=== PATIENT | female | born 1980 | race Caucasian/White ===

== ENCOUNTER 2024-01-31 09:36 | Inpatient (IN) | payer OTHER ==
--- NOTE | 2024-01-31 10:34 | ED ---
Chest Pain HPI - General Chief Complaint: Chest Pain Stated Complaint: chest pain Time Seen by Provider: 01/31/24 09:45 Source: patient, EMS Mode of arrival: EMS Limitations: no limitations - History of Present Illness Initial Comments: 43-year-old female with past medical history of coronary disease, renal failure on dialysis Friday, thyroid disorder who presents emergency department reporting chest pain. Reports that she was like she is having a pin poking her in the left side of her chest wall. She also is short of breath. patient was just discharged from the hospital on the . She was discharged home with a LifeVest because her after her heart cath demonstrated an EF of 20%. States that her shortness of breath is getting worse while her pain is not getting any better. She has been taking all of her prescribed medications as directed without any missed doses. She did go to dialysis yesterday and had no issue. Patient does not make any urine. Patient arrives without her LifeVest on. States she took it off just prior to EMS coming to pick her up. No other alleviating, precipitating or modifying factors - Related Data Home Medications Medication Instructions Recorded Confirmed Aspirin 81 mg PO DAILY 01/27/24 01/31/24 Atorvastatin [Lipitor] 40 mg PO DAILY 01/27/24 01/31/24 Empagliflozin [Jardiance] 10 mg PO DAILY 01/27/24 01/31/24 Folic Acid 1 mg PO DAILY 01/27/24 01/31/24 Levothyroxine Sodium [Synthroid] 125 mcg PO DAILY 01/27/24 01/31/24 Losartan [Cozaar] 25 mg PO DAILY 01/27/24 01/31/24 Doxylamine Succinate [Unisom] 25 mg PO HS PRN 01/31/24 01/31/24 Loratadine [Claritin] 10 mg PO DAILY 01/31/24 01/31/24 Previous Rx's Medication Instructions Recorded Isosorbide Dinitrate [Isordil] 20 mg PO TID #90 tab 01/27/24 Metoprolol Tartrate [Lopressor] 25 mg PO BID #60 tab 01/27/24 Nystatin 100,000 Unit/gm Powd 1 applic TOPICAL QID each 01/27/24 [Mycostatin Powder] Pantoprazole [Protonix] 40 mg PO AC-BRKFST #30 tab 01/27/24 Sodium Bicarbonate Tab 650 mg PO BID #60 tab 01/27/24 Ticagrelor [Brilinta] 90 mg PO BID #60 tab 01/27/24 Torsemide [Demadex] 40 mg PO DAILY #60 tab 01/27/24 hydrALAZINE HCL [Apresoline] 25 mg PO TID #90 tab 01/27/24 Allergies Allergy/AdvReac Type Severity Reaction Status Date / Time No Known Allergies Allergy Verified 01/24/24 18:33 Review of Systems ROS Statement: Those systems with pertinent positive or pertinent negative responses have been documented in the HPI. ROS Other: All systems not noted in ROS Statement are negative. Past Medical History Past Medical History: Myocardial Infarction ([place]), Renal Disease History of Any Multi-Drug Resistant Organisms: None Reported Past Surgical History: Heart Catheterization, Heart Catheterization With Stent Additional Past Surgical History / Comment(s): right kidney removed 2022 Past Psychological History: Anxiety, Depression Smoking Status: Former smoker Past Alcohol Use History: None Reported Past Drug Use History: None Reported General Exam Limitations: no limitations General appearance: alert, in no apparent distress Head exam: Present: atraumatic, normocephalic, normal inspection Eye exam: Present: normal appearance, PERRL, EOMI. Absent: scleral icterus, conjunctival injection, periorbital swelling Neck exam: Present: normal inspection. Absent: tenderness, meningismus, lymphadenopathy Respiratory exam: Present: normal lung sounds bilaterally. Absent: respiratory distress, wheezes, rales, rhonchi, stridor Cardiovascular Exam: Present: regular rate, normal rhythm, normal heart sounds. Absent: systolic murmur, diastolic murmur, rubs, gallop, clicks Extremities exam: Present: normal inspection, full ROM, normal capillary refill. 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 sent in by a medical professional or institution (, PA, INSPECTING ENGINEER, urgent care, hospital, or jail...) When possible be specific @ -No Did you speak to anyone other than the patient for history (EMS, parent, family, police, friend...)? What history was obtained from this source @ -No Did you review nursing and triage notes (agree or disagree)? Why? @ -I reviewed and agree with nursing and triage notes Were old charts reviewed (outside hosp., previous admission, EMS record, old EKG, old radiological studies, urgent care reports/EKG's, jail records)? Report findings @ -I reviewed discharge summary from the Differential Diagnosis (chest pain, altered mental status, abdominal pain women, abdominal pain men, vaginal bleeding, weakness, fever, dyspnea, syncope, headache, dizziness, GI bleed, back pain, seizure, CVA, palpatations, mental health, musculoskeletal)? @ -Differential Dyspnea: Coronary syndrome, arrhythmia, tamponade, asthma, COPD, pulmonary embolism, pneumonia, pneumothorax, pulmonary effusion, anaphylaxis, diabetic ketoacidosis, flailed chest, pulmonary contusion, diaphragmatic rupture, anemia, neuromuscular, this is not meant to be an all-inclusive list. EKG interpreted by me (3pts min.). @ -Yes and demonstrates sinus rhythm with a rate of 75. Parable 194. QRS 70. QTc of 384. No acute ST segment elevations. Inverted T wave aVL X-rays interpreted by me (1pt min.). @ -Yes and demonstrates no acute process CT interpreted by me (1pt min.). @ -None done U/S interpreted by me (1pt. min.). @ -None done What testing was considered but not performed or refused? (CT, X-rays, U/S, labs)? Why? @ -None What meds were considered but not given or refused? Why? @ -None Did you discuss the management of the patient with other professionals (professionals i.e. , PA, INSPECTING ENGINEER, lab, RT, psych nurse, social media director, corporate compliance manager, teacher, life science technical officer, patient case manager)? Give summary @ -Spoke with Dr. Al who does present to the emergency department to evaluate the patient. Also spoke with Dr. Varner who would like to dialyze the patient after her cath Was smoking cessation discussed for >3mins.? @ -No Was critical care preformed (if so, how long)? @ -Yes, 40 minutes for diagnosis of NSTEMI. Discussion with cardiology and nephrology Were there social determinants of health that impacted care today? How? (Homelessness, low income, unemployed, alcoholism, drug addiction, transportation, low edu. Level, literacy, decrease access to med. care, alf, rehab)? @ -No Was there de-escalation of care discussed even if they declined (Discuss DNR or withdrawal of care, Hospice)? DNR status @ -No What co-morbidities impacted this encounter? (DM, HTN, Smoking, COPD, CAD, Cancer, CVA, ARF, Chemo, Hep., AIDS, mental health diagnosis, sleep apnea, morbid obesity)? @ -End-stage renal disease on hemodialysis, coronary disease Was patient admitted / discharged? Hospital course, mention meds given and route, prescriptions, significant lab abnormalities, going to OR and other pertinent info. @ -Upon arrival patient seen and evaluated in room 28. Thorough history and physical exam was performed. Patient does not have any respiratory distress. IV is established. Laboratory studies are conducted. Chest x-ray was performed. Patient's troponin markedly elevated. Spoke with Dr. Al. Patient will be heparinized and he will catheterize the patient. I spoke with Dr. Varner she will dialyze the patient after her cath. Patient was agreeable to admission. Spoke with Dr. Jimenez for admission. Undiagnosed new problem with uncertain prognosis? @ -No Drug Therapy requiring intensive monitoring for toxicity (Heparin, Nitro, Insulin, Cardizem)? @ -No Were any procedures done? @ -No Diagnosis/symptom? @- Acute respiratory insufficiency, NSTEMI, volume overload, end-stage renal disease on hemodialysis, history of coronary disease with recent stent placement Acute, or Chronic, or Acute on Chronic? @ -Acute on chronic Uncomplicated (without systemic symptoms) or Complicated (systemic symptoms)? @ -Complicated Side effects of treatment? @ -No Exacerbation, Progression, or Severe Exacerbation? @ -No Poses a threat to life or bodily function? How? (Chest pain, [place], [place], pneumonia, PE, COPD, DKA, ARF, appy, cholecystitis, CVA, Diverticulitis, Homicidal, Suicidal, threat to staff... and all critical care pts) @ -Yes as patient does have advanced cardiac disease with an EF less than 20 Disposition Clinical Impression: Chest pain, Acute non-ST elevation myocardial infarction (NSTEMI), ESRD (end s tage renal disease) on dialysis, Hyperkalemia, Hypoglycemia Disposition: ADMITTED IP TO THIS [facility] Condition: Serious Is patient prescribed a controlled substance at d/c from ED?: No Time of Disposition: 13:28 Decision to Admit Reason: Admit from EC Decision Date: 01/31/24 Decision Time: 13:28
--- NOTE | 2024-01-31 10:45 | XR ---
EXAMINATION TYPE: XR chest 2V DATE OF EXAM: 01/31/2024 COMPARISON: 01/25/2024 INDICATION: Chest pain TECHNIQUE: Frontal and lateral views of the chest are obtained. FINDINGS: The heart size is large. The pulmonary vasculature is normal. The lungs are clear. Catheter is present on the right with the tips in the distal superior vena cava region. IMPRESSION: 1. Cardiomegaly. 2. No acute pulmonary process.
[2024-01-31 11:30] LABS: AST 371 U/L (14-36); African American GFR (CKD) 16 (>60 ml/min/1.73 sqM); Albumin 3.5 g/dL (3.5-5.0); Alkaline Phosphatase 777 U/L (38-126); Anion Gap 19 mmol/L; Blood Urea Nitrogen 55 mg/dL (7-17); Calcium 8.6 mg/dL (8.4-10.2); Carbon Dioxide 20 mmol/L (22-30); Chloride 90 mmol/L (98-107); Glucose 69 mg/dL (74-99); Lipase 556 U/L (23-300); Magnesium 2.3 mg/dL (1.6-2.3); Non-African American GFR(CKD) 14 (>60 ml/min/1.73 sqM); Sodium 129 mmol/L (137-145); Total Bilirubin 3.9 mg/dL (0.2-1.3)
[2024-01-31 11:38] LABS: ALT 433 U/L (4-34); Potassium 6.3 mmol/L (3.5-5.1)
[2024-01-31 11:52] LABS: Anisocytosis Slight; Basophils % (A) 0 %; Eosinophils % (A) 0 %; HCT 27.3 % (34.0-46.0); HGB 8.4 gm/dL (11.4-16.0); Hypochromasia Marked; Lymphocytes # (A) 1.3 k/uL (1.0-4.8); Lymphocytes % (A) 9 %; MCHC 30.8 g/dL (31.0-37.0); MCV 87.6 fL (80.0-100.0); Mean Platelet Volume 10.9; Monocytes % (A) 7 %; Neutrophils # (A) 12.8 k/uL (1.3-7.7); Platelet Count 182 k/uL (150-450); Poikilocytosis Slight; RBC 3.11 m/uL (3.80-5.40); RDW 19.4 % (11.5-15.5)
[2024-01-31 11:57] LABS: NT-Pro-B-Type Natriuretic Pept 124000 pg/mL
[2024-01-31] MEDS: ALBUTEROL NEBULIZED 2.5 MG/3 ML INHALATION STA (12:10)
[2024-01-31] MEDS: DEXTROSE 50% SYRINGE 50 ML IVP STA ×2 (12:14→12:15)
[2024-01-31] MEDS: SODIUM ZIRCONIUM CYCLOSILICATE 10 GM PACKET PO ONE (12:19)
[2024-01-31] MEDS: INSULIN REGULAR 100 UNIT/ML VIAL (IV) IV ONE (12:19)
[2024-01-31] MEDS: diphenhydrAMINE 50 MG/ML 1 ML VIAL IVP STA (12:21)
[2024-01-31] MEDS: METOCLOPRAMIDE 5 MG/ML 2 ML VIAL IVP STA (12:25)
[2024-01-31 12:31] LABS: Lymphocytes # (M) 1.81 k/uL (1.0-4.8); Monocytes # (M) 0.45 k/uL (0-1.0); Neutrophils # (M) 12.99 k/uL (1.3-7.7); Neutrophils % (M) 86 %; Nucleated Red Blood Cells 2 /100 WBC (0-0); Total Cells Counted 200; WBC 15.1 k/uL (3.8-10.6)
[2024-01-31 12:47] LABS: INR 1.4 (<1.2); Partial Thromboplastin Time 21.9 sec (22.0-30.0); Prothrombin Time 14.8 sec (10.0-12.5)
[2024-01-31] MEDS ORDERED: HEPARIN SODIUM 1,000 UN/ML (10ML VL) IV PRN ×3 (13:01→18:13)
[2024-01-31] MEDS ORDERED: NITROGLYCERIN SL TABS 0.4 MG TAB SUBLINGUAL PRN (13:10)
[2024-01-31] MEDS ORDERED: NALOXONE 0.4 MG/ML 1 ML VIAL IV PRN (13:29)
[2024-01-31] MEDS: ASPIRIN 325 MG TAB PO STA (13:39)
[2024-01-31] MEDS: ATORVASTATIN 80 MG TAB PO STA (13:39)
[2024-01-31] MEDS: HEPARIN SOD,PORK IN 0.45% NACL 25,000 UNIT in 0.45% NACL 1 250ML.BAG IV SCH ×3 (13:48→18:32)
[2024-01-31] MEDS: HEPARIN SODIUM 1,000 UN/ML (10ML VL) IV ONE ×2 (13:49→18:32)
--- NOTE | 2024-01-31 14:24 | P.CRDCN ---
History of Present Illness Consult date: 01/31/24 Consult reason: chest pain, shortness of breath History of present illness: History of present illness: Patient is a pleasant 43-year-old female with significant past medical history of CAD status post recent PCI last week, ALDEN secondary to acute tubular necrosis started on hemodialysis 01/19/2024, anemia of chronic disease, chronic systolic h eart failure with reduced EF 20-25%, ischemic cardiomyopathy, history of right nephrectomy 2022, diabetes type 2, hyperlipidemia who presented to the emergency department with complaints of shortness of breath, chest pain, weakness, nausea/vomiting, and lightheadedness. She was discharged home on 01/27/2024 after acute anterior STEMI status post LAD stenting x 2. She was discharged home with LifeVest. She had been doing okay. She has not missed any dialysis treatments and had dialysis yesterday. Then this morning she was feeling more weak, nauseous, vomited, lightheaded and short of breath. She also reports having some chest fluttering sensation and stabbing chest pains. She does feel intermittent chills. She believes this is similar to when she had her prior MD a week ago. She does admit to compliance with her medications. She does have some small amount of bleeding when she wipes after a bowel movement. She states she is not making any urine. Chest x-ray shows cardiomegaly, no acute pulmonary process. Unable to access full record of prior admission as system was down du ring that time. Labs reviewed: WBC 15.1, hemoglobin 8.4, potassium 6.3, sodium 129, creatinine 3.68, troponin 16.3, BNP 124, 000. REVIEW OF SYSTEMS: No cough or expectoration. No diaphoresis. Patient denies headache, dizziness, blurred vision, double vision. Patient denies any stomach discomfort. No hematemesis. Denies dysuria or hematuria. No muscle weakness or numbness. Chest pain, shortness of breath, dizziness, weakness, nausea/vomiting, intermittent chills. PHYSICAL EXAMINATION: This is a 43-year-old female in no apparent distress at the time of my examination. HEENT: Head is atraumatic, normocephalic. Pupils are equal, round. Sclerae anicteric. Conjunctivae are clear. Mucous membranes of the mouth are moist. Neck is supple. There is no jugular venous distention. No carotid bruit is heard. CHEST EXAMINATION: Lungs are clear to auscultation. No chest wall tenderness is noted on palpation or with deep breathing. HEART EXAMINATION: Heart regular rate and rhythm. S1, S2 heard. No murmurs, gallops or rub. ABDOMEN: Soft, nontender. Bowel sounds are heard. EXTREMITIES: 2+ peripheral pulses with no evidence of peripheral edema and no calf tenderness noted. NEUROLOGIC EXAMINATION: Patient is awake, alert and oriented x3. IMPRESSION AND PLAN: CAD status post PCI LAD x 2 Recent STEMI 1 week ago ALDEN secondary to acute tubular necrosis on hemodialysis Acute on chronic systolic heart failure, EF 20-25% Ischemic cardiomyopathy Chest pain Shortness of breath Dizziness Nausea/vomiting NSTEMI, elevated troponin possibly related to prior STEMI versus kidney failure versus new blockage PLAN: We discussed option of stress testing versus left heart catheterization. We will plan to proceed with left heart catheterization today. Check echocardiogram to evaluate heart function and structure. Trend troponin. Continue heparin drip. Will try nitro. We will follow. I am dictating on behalf of Dr. Nilton Al's history/physical and assessment/plan. Past Medical History Past Medical History: Myocardial Infarction (MD), Renal Disease History of Any Multi-Drug Resistant Organisms: None Reported Past Surgical History: Heart Catheterization, Heart Catheterization With Stent Additional Past Surgical History / Comment(s): right kidney removed 2022 Past Psychological History: Anxiety, Depression Smoking Status: Former smoker Past Alcohol Use History: None Reported Past Drug Use History: None Reported Medications and Allergies Home Medications Medication Instructions Recorded Confirmed Type Aspirin 81 mg PO DAILY 01/27/24 01/31/24 History Atorvastatin [Lipitor] 40 mg PO DAILY 01/27/24 01/31/24 History Empagliflozin [Jardiance] 10 mg PO DAILY 01/27/24 01/31/24 History Folic Acid 1 mg PO DAILY 01/27/24 01/31/24 History Isosorbide Dinitrate [Isordil] 20 mg PO TID #90 tab 01/27/24 01/31/24 Rx Levothyroxine Sodium [Synthroid] 125 mcg PO DAILY 01/27/24 01/31/24 History Losartan [Cozaar] 25 mg PO DAILY 01/27/24 01/31/24 History Metoprolol Tartrate [Lopressor] 25 mg PO BID #60 tab 01/27/24 01/31/24 Rx Nystatin 100,000 Unit/gm Powd 1 applic TOPICAL QID each 01/27/24 01/31/24 Rx [Mycostatin Powder] Pantoprazole [Protonix] 40 mg PO AC-BRKFST #30 tab 01/27/24 01/31/24 Rx Sodium Bicarbonate Tab 650 mg PO BID #60 tab 01/27/24 01/31/24 Rx Ticagrelor [Brilinta] 90 mg PO BID #60 tab 01/27/24 01/31/24 Rx Torsemide [Demadex] 40 mg PO DAILY #60 tab 01/27/24 01/31/24 Rx hydrALAZINE HCL [Apresoline] 25 mg PO TID #90 tab 01/27/24 01/31/24 Rx Doxylamine Succinate [Unisom] 25 mg PO HS PRN 01/31/24 01/31/24 History Loratadine [Claritin] 10 mg PO DAILY 01/31/24 01/31/24 History Allergies Allergy/AdvReac Type Severity Reaction Status Date / Time No Known Allergies Allergy Verified 01/24/24 18:33 Physical Exam Vitals: Vital Signs Temp Pulse Pulse Resp BP Pulse Ox 01/31/24 12:31 79 01/31/24 12:29 80 18 142/91 100 01/31/24 12:10 75 01/31/24 11:00 78 18 137/105 98 01/31/24 10:00 74 18 128/93 100 01/31/24 09:46 75 01/31/24 09:41 97.8 F 75 18 120/80 100 Intake and Output 01/30/24 01/31/24 01/31/24 22:59 06:59 14:59 Other: Weight 72.575 kg Results 01/31/24 10:13 01/31/24 10:13 Cardiac Enzymes 01/31/24 01/31/24 Range/Units 10:13 10:13 AST 371 H (14-36) U/L Troponin I 16.300 H* (0.000-0.034) ng/mL Coagulation 01/31/24 Range/Units 12:20 PT 14.8 H (10.0-12.5) sec APTT 21.9 L (22.0-30.0) sec CBC 01/31/24 Range/Units 10:13 WBC 15.1 H (3.8-10.6) k/uL RBC 3.11 L (3.80-5.40) m/uL Hgb 8.4 L (11.4-16.0) gm/dL Hct 27.3 L (34.0-46.0) % Plt Count 182 (150-450) k/uL Comprehensive Metabolic Panel 01/31/24 Range/Units 10:13 Sodium 129 L (137-145) mmol/L Potassium 6.3 H* (3.5-5.1) mmol/L Chloride 90 L (98-107) mmol/L Carbon Dioxide 20 L (22-30) mmol/L BUN 55 H (7-17) mg/dL Creatinine 3.68 H (0.52-1.04) mg/dL Glucose 69 L (74-99) mg/dL Calcium 8.6 (8.4-10.2) mg/dL AST 371 H (14-36) U/L ALT 433 H (4-34) U/L Alkaline Phosphatase 777 H (38-126) U/L Total Protein 6.0 L (6.3-8.2) g/dL Albumin 3.5 (3.5-5.0) g/dL Current Medications Generic Name Dose Route Start Last Admin Trade Name Freq PRN Reason Stop Dose Admin Alprazolam 0.25 mg 01/31/24 13:10 Alprazolam 0.25 Mg Tab PO Q6HR PRN Mild Anxiety Alprazolam 0.5 mg 01/31/24 13:10 Alprazolam 0.5 Mg Tab PO Q6HR PRN Moderate Anxiety Heparin Sodium (Porcine) 0 unit 01/31/24 13:01 Heparin Sodium 1,000 Un/Ml (10ml Vl) IV PER PROTOCOL PRN Low PTT Protocol Heparin Sodium/Sodium Chloride 250 mls @ 8.709 mls/hr 01/31/24 13:15 01/31/24 13:48 25,000 unit/ Sodium Chloride IV 12 units/kg/hr .Q24H JOANA 8.709 mls/hr Administration Protocol 12 UNITS/KG/HR Heparin Sodium (Porcine) 10, 1,001 mls @ 999 mls/hr 02/01/24 07:00 000 unit/ Sodium Chloride IRRIGATION 02/01/24 23:00 ONCE PRN INTRA-OP Heparin Sodium (Porcine) 2,500 250.5 mls @ 250 mls/hr 02/01/24 07:00 unit/ Sodium Chloride IRRIGATION 02/01/24 23:00 ONCE PRN INTRA-OP Naloxone HCl 0.2 mg 01/31/24 13:29 Naloxone 0.4 Mg/Ml 1 Ml Vial IV Q2M PRN Opioid Reversal Nitroglycerin 0.4 mg 01/31/24 13:10 Nitroglycerin Sl Tabs 0.4 Mg Tab SUBLINGUAL Q5M PRN Chest Pain Intake and Output 01/30/24 01/31/24 01/31/24 22:59 06:59 14:59 Other: Weight 72.575 kg Patient Weight 02/01/24 06:59 Weight 72.575 kg 01/31/24 10:13 01/31/24 10:13
[2024-01-31] MEDS ORDERED: fentaNYL (PF) 50 MCG/ML 2 ML AMP ONE (15:37)
[2024-01-31] MEDS: LIDOCAINE 1% INJ 10MG/ML (20 ML MDV) SQ ONE (15:44)
[2024-01-31] MEDS: MIDAZOLAM 2 MG/2 ML VIAL IVP ONE (15:44)
[2024-01-31] MEDS: fentaNYL (PF) 50 MCG/ML 2 ML AMP IVP ONE (15:44)
[2024-01-31] MEDS ORDERED: NITROGLYCERIN SL TABS 0.4 MG TAB SUBLINGUAL ONE (15:46)
[2024-01-31] MEDS: NITROGLYCERIN SL TABS 0.4 MG TAB SUBLINGUAL ONE (15:46)
[2024-01-31] MEDS: VERAPAMIL SYRINGE (5 MG/10 ML) INTRAARTER ONE (15:50)
[2024-01-31] MEDS: HEPARIN SODIUM 1,000 UN/ML (10ML VL) IVP ONE ×2 (15:56→16:10)
[2024-01-31] MEDS: NITROGLYCERIN 1000MCG/10ML SYRINGE INTRACORON ONE ×2 (16:13→17:00)
[2024-01-31] MEDS: PHENYLEPHRINE-0.9% NACL SYG 1,000 MCG/10 ML SYRINGE IVP ONE ×2 (16:44→16:48)
[2024-01-31] MEDS: IOPAMIDOL-370 100ML BTL INJ ONE (17:24)
--- NOTE | 2024-01-31 17:25 | P.HPIM ---
History of Present Illness H&P Date: 01/31/24 History of present illness: 43-year-old female with past medical see significant for recent myocardial infarction with PCI last week, chronic systolic CHF with EF 20 to 25%, ischemic cardiomyopathy, history of right nephrectomy, history of ALDEN secondary to ATN started on hemodialysis 01/19/2024, diabetes mellitus, hypertension, hyperlipidemia who presented to ED with a complaint of shortness of breath, chest pain, weakness, nausea vomiting and lightheadedness. Patient was discharged home on 01/27/2024 after acute anterior STEMI status post LAD stenting X2. Patient was discharged home with LifeVest given echo showed EF of 20%. Patient reported that she was compliant with her medication and dialysis, had dialysis yesterday. Patient continued to feel weak, nauseous, vomited and lightheaded and along with shortness of breath. Patient also noticed some fluttering in the chest and stabbing chest pains. Reported intermittent chills no documented fever. Patient also reported small amount of bleeding after wiping with bowel movements. Patient chest x-ray showed cardiomegaly, no acute pulmonary process. Labs showed WBCs 15.1, hemoglobin 8.4, potassium 6.3, sodium 129, creatinine C3.68, troponin 16.3, proBNP 124,000. REVIEW OF SYSTEMS: CONSTITUTIONAL: No fever, no malaise, no fatigue. HEENT: No recent visual problems or hearing problems. Denied any sore throat. CARDIOVASCULAR: No chest pain, orthopnea, PND, no palpitations, no syncope. PULMONARY: No shortness of breath, no cough, no hemoptysis. GASTROINTESTINAL: No diarrhea, no nausea, no vomiting, no abdominal pain. NEUROLOGICAL: No headaches, no weakness, no numbness. HEMATOLOGICAL: Denies any bleeding or petechiae. GENITOURINARY: Denies any burning micturition, frequency, or urgency. MUSCULOSKELETAL/RHEUMATOLOGICAL: Denies any joint pain, swelling, or any muscle pain. ENDOCRINE: Denies any polyuria or polydipsia. The rest of the 14-point review of systems is negative. PHYSICAL EXAMINATION: GENERAL: The patient is A&O x3, NAD HEENT: EOMI, Sclerae anicteric, Moist Mucous membranes Neck: Supple, Non tender, No JVD PULMONARY: Equal breath souds B/L, No wheezing, No crackles. CARDIOVASCULAR: S1, S2 present. No murmurs, rubs, or gallops. ABDOMEN: Soft, nontender, nondistended, normoactive bowel sounds. No guarding or rebound tenderness. MUSCULOSKELETAL: No edema, No cyanosis. No clubbing. Normal ROM. Intact peripheral pulses. EXTREMITIES: No cyanosis, clubbing, or pedal edema. NEUROLOGICAL: CN 2-12 grossly intact. No FND Assessment and plan: Chest pain: NSTEMI: Recent PCI LAD X2 Recent STEMI 1 week ago Acute on chronic systolic CHF with EF 20 to 25% Ischemic cardiomyopathy Continue home meds including dual antiplatelet Monitor troponin Telemetry Heparin drip Cardiology consulted plan for cardiac catheterization today ALDEN secondary to ATN on hemodialysis: On hemodialysis Friday and Friday Monitor fluid status, monitor electrolytes Nephrology consulted for maintenance hemodialysis through right IJ catheter DVT prophylaxis AC Monitor vital signs and labs Continue telemetry monitoring Labs and medication were reviewed. Continue same treatment. Resume home medication. Further recommendations as per clinical course of the patient Dictation was produced using [employer] dictation software. please excuse any grammatical, word or spelling errors. Past Medical History Past Medical History: Myocardial Infarction (IA), Renal Disease History of Any Multi-Drug Resistant Organisms: None Reported Past Surgical History: Heart Catheterization, Heart Catheterization With Stent Additional Past Surgical History / Comment(s): right kidney removed 2022 Past Psychological History: Anxiety, Depression Smoking Status: Former smoker Past Alcohol Use History: None Reported Past Drug Use History: None Reported Medications and Allergies Home Medications Medication Instructions Recorded Confirmed Type Aspirin 81 mg PO DAILY 01/27/24 01/31/24 History Atorvastatin [Lipitor] 40 mg PO DAILY 01/27/24 01/31/24 History Empagliflozin [Jardiance] 10 mg PO DAILY 01/27/24 01/31/24 History Folic Acid 1 mg PO DAILY 01/27/24 01/31/24 History Isosorbide Dinitrate [Isordil] 20 mg PO TID #90 tab 01/27/24 01/31/24 Rx Levothyroxine Sodium [Synthroid] 125 mcg PO DAILY 01/27/24 01/31/24 History Losartan [Cozaar] 25 mg PO DAILY 01/27/24 01/31/24 History Metoprolol Tartrate [Lopressor] 25 mg PO BID #60 tab 01/27/24 01/31/24 Rx Nystatin 100,000 Unit/gm Powd 1 applic TOPICAL QID each 01/27/24 01/31/24 Rx [Mycostatin Powder] Pantoprazole [Protonix] 40 mg PO AC-BRKFST #30 tab 01/27/24 01/31/24 Rx Sodium Bicarbonate Tab 650 mg PO BID #60 tab 01/27/24 01/31/24 Rx Ticagrelor [Brilinta] 90 mg PO BID #60 tab 01/27/24 01/31/24 Rx Torsemide [Demadex] 40 mg PO DAILY #60 tab 01/27/24 01/31/24 Rx hydrALAZINE HCL [Apresoline] 25 mg PO TID #90 tab 01/27/24 01/31/24 Rx Doxylamine Succinate [Unisom] 25 mg PO HS PRN 01/31/24 01/31/24 History Loratadine [Claritin] 10 mg PO DAILY 01/31/24 01/31/24 History Allergies Allergy/AdvReac Type Severity Reaction Status Date / Time No Known Allergies Allergy Verified 01/24/24 18:33 Physical Exam Vitals: Vital Signs Temp Pulse Pulse Resp BP Pulse Ox 01/31/24 15:10 98.1 F 79 18 130/83 01/31/24 12:31 79 01/31/24 12:29 80 18 142/91 100 01/31/24 12:10 75 01/31/24 11:00 78 18 137/105 98 01/31/24 10:00 74 18 128/93 100 01/31/24 09:46 75 01/31/24 09:41 97.8 F 75 18 120/80 100 Intake and Output 01/31/24 01/31/24 01/31/24 06:59 14:59 22:59 Other: Weight 72.575 kg Results CBC & Chem 7: 01/31/24 10:13 01/31/24 10:13 Labs: Abnormal Lab Results - Last 24 Hours (Table) 01/31/24 01/31/24 01/31/24 Range/Units 10:13 10:13 10:13 WBC 15.1 H (3.8-10.6) k/uL RBC 3.11 L (3.80-5.40) m/uL Hgb 8.4 L (11.4-16.0) gm/dL Hct 27.3 L (34.0-46.0) % MCHC 30.8 L (31.0-37.0) g/dL RDW 19.4 H (11.5-15.5) % Neutrophils # 12.8 H (1.3-7.7) k/uL Neutrophils # (Manual) 12.99 H (1.3-7.7) k/uL Nucleated RBCs 2 H (0-0) /100 WBC PT (10.0-12.5) sec INR (<1.2) APTT (22.0-30.0) sec Sodium 129 L (137-145) mmol/L Potassium 6.3 H* (3.5-5.1) mmol/L Chloride 90 L (98-107) mmol/L Carbon Dioxide 20 L (22-30) mmol/L BUN 55 H (7-17) mg/dL Creatinine 3.68 H (0.52-1.04) mg/dL Glucose 69 L (74-99) mg/dL Total Bilirubin 3.9 H (0.2-1.3) mg/dL AST 371 H (14-36) U/L ALT 433 H (4-34) U/L Alkaline Phosphatase 777 H (38-126) U/L Troponin I 16.300 H* (0.000-0.034) ng/mL Total Protein 6.0 L (6.3-8.2) g/dL Lipase 556 H (23-300) U/L 01/31/24 01/31/24 Range/Units 12:20 14:00 WBC (3.8-10.6) k/uL RBC (3.80-5.40) m/uL Hgb (11.4-16.0) gm/dL Hct (34.0-46.0) % MCHC (31.0-37.0) g/dL RDW (11.5-15.5) % Neutrophils # (1.3-7.7) k/uL Neutrophils # (Manual) (1.3-7.7) k/uL Nucleated RBCs (0-0) /100 WBC PT 14.8 H (10.0-12.5) sec INR 1.4 H (<1.2) APTT 21.9 L (22.0-30.0) sec Sodium (137-145) mmol/L Potassium (3.5-5.1) mmol/L Chloride (98-107) mmol/L Carbon Dioxide (22-30) mmol/L BUN (7-17) mg/dL Creatinine (0.52-1.04) mg/dL Glucose (74-99) mg/dL Total Bilirubin (0.2-1.3) mg/dL AST (14-36) U/L ALT (4-34) U/L Alkaline Phosphatase (38-126) U/L Troponin I 13.800 H* (0.000-0.034) ng/mL Total Protein (6.3-8.2) g/dL Lipase (23-300) U/L
[2024-01-31] MEDS ORDERED: ATROPINE SULFATE 0.1 MG/ML 10ML SYRINGE IV PRN (17:36)
[2024-01-31] MEDS ORDERED: RX INFO: IV CONTRAST WAS GIVEN 1 EACH MISC MISCELLANE PRN (17:36)
[2024-01-31] MEDS ORDERED: ZOLPIDEM 5 MG TAB PO PRN (17:36)
--- NOTE | 2024-01-31 17:58 | P.PRCINT ---
Percutaneous Coronary Int. - Percutaneous Coronary Intervention Percutaneous Coronary Intervention: PROCEDURES PERFORMED: Left heart catheterization, bilateral coronary angiography, ultrasound guided arterial access, PCI proximal to distal RCA extending into PDA overlapping 3.5 x 15mm, 3.5 x 38mm, 2.5 x 48mm Xience JORDI, post dilated with a 4.0mm NC balloon, PCI PLV with 2.5 x 18mm Xience, IVUS RCA INDICATION: non-STEMI CONSENT:I have discussed the risks, benefits and alternative therapies for the above-mentioned procedure and for both sedation/analgesia as well as necessary blood product administration, if indicated, as they pertain to this patient. The patient has indicated understanding and acceptance of the risks and procedures discussed. PROCEDURE: After the risks, benefits and alternatives of the above mentioned procedure explained in detail with the patient, informed consent was obtained. Patient was taken to the catheterization lab and prepped and draped in usual fashion. Ultrasound guidance was used to assess for arterial access. 1% lidocaine was used to anesthetize the right radial artery. A 6-Austrian sheath was placed in the right radial artery using modified Seldinger technique and ultrasound guidance. Left coronary angiography was performed with a 5-Austrian JL 3.5 catheter and right coronary angiography was performed with a 5-Austrian FR5 catheter in various views. A 5-Austrian FR5 catheter was inserted into the left ventricle and pressure measurements were obtained. The decision was made to perform PCI of the RCA. The LAD stent and apical LAD appeared similar to prior and apical LAD small caliber and felt best treated medically. Heparin was given. A 6-Austrian JL 0.75 guide was used to engage the RCA. A 0.014 BMW wire was advanced the distal PLV. An additional 0.014 whisper wire was placed in the distal PDA. Predilation of the PDA was performed with a 2.0mm balloon. Next predilation was performed of the PLV with a 2.5mm NC balloon. A 2.5 x 18mm Xience JORDI was placed in the proximal PLV. A 2.5 x 48mm Xience JORDI was placed in the distal RCA into the PDA. There was no significant jailing of the PLV. There was a fibrotic/ calcified lesion of the proximal PDA resistant to post dilation and eventual able to be dilated with a 3.5mm NC balloon. This however resulted in a small intramural contained hematoma. Further stenting was performed of the mid RCA with a 3.5 x38mm Xience and a 3.5 x 15mm Xience JORDI of the proximal RCA. The stent was post dilated with a 4.0mm NC balloon. IVUS was repeated which showed well expanded stent and no dissection. Final angiograms were performed. Pre-intervention there was 95% PDA stenosis and diffuse PLV and RCA stenosis and CHARLENE-3 flow and postintervention there was <10% stenosis and CHARLENE-3 flow. The right radial sheath was removed and a TR band was placed with hemostasis achieved. The patient tolerated the procedure well. Patient was transported back to the post catheterization holding area in stable condition. Conscious Sedation: Patient was monitored under the direct supervision of myself for conscious sedation using Versed and fentanyl for a total duration of 105 minutes HEMODYNAMICS: Aorta: 105/67 LV: 101/14, LVEDP 22 SELECTIVE CORONARY ARTERIOGRAPHY: LEFT MAIN: The left main is a large caliber vessel which bifurcates into the LAD and circumflex. There is no significant stenosis. LEFT ANTERIOR DESCENDING CORONARY ARTERY: LAD is a large caliber vessel which wraps around to the apex. There is a proximal LAD 30% stenosis and long patent stent from proximal to distal LAD. Diagonal 1 has 40% proximal stenosis. The apical LAD has a 95% stenosis with left to left and right to left collaterals. LEFT CIRCUMFLEX CORONARY ARTERY: Left circumflex is a moderate caliber vessel with 20-30% stenosis. OM1 is small caliber vessel with 80% stenosis RIGHT CORONARY ARTERY: The right coronary artery is a large caliber vessel which gives off a PDA and PLV branch and is the dominant vessel. There is diffuse 50- 80% stenosis of the proximal to distal RCA. There is more focal tandem proximal PDA 95% and 80% stenoses. The PLV has a proximal 70% stenosis followed by a relatively normal segment then a 50% stenosis. There is 70% stenosis of a small caliber superior branch. FINAL IMPRESSION: 1. CAD as described above with 95% PDA, 50-80% RCA, 70% PLV, 80% OM1 stenosis, 95% apical LAD stenosis with patent LAD stent 2. S/p PCI proximal to distal RCA extending into PDA overlapping 3.5 x 15mm, 3.5 x 38mm, 2.5 x 48mm Xience JORDI, post dilated with a 4.0mm NC balloon, PCI PLV with 2.5 x 18mm Xience 3. High normal left sided filling pressures PLAN: 1. Aggressive risk factor modification per most recent ACC/AHA guidelines. 2. Continue dual antiplatelets with aspirin and Brillinta for 12 months 3. Likely treat small caliber OM1 and apical LAD medically with artery appearing to be 1.5mm in size
[2024-01-31] MEDS: ATORVASTATIN 40 MG TAB PO SCH (18:07)
[2024-01-31] MEDS: ASPIRIN 81 MG PO SCH (18:33)
[2024-01-31] MEDS: SODIUM CHLORIDE 0.9% 1,000 ML in EMPTY BAG 1 BAG IV SCH (18:33)
[2024-01-31 20:29] LABS: Anisocytosis Slight; HCT 26.5 % (34.0-46.0); HGB 7.8 gm/dL (11.4-16.0); Hypochromasia Marked; MCH 26.2 pg (25.0-35.0); MCHC 29.4 g/dL (31.0-37.0); MCV 89.1 fL (80.0-100.0); Mean Platelet Volume 10.2; Platelet Count 183 k/uL (150-450); Poikilocytosis Slight; RBC 2.97 m/uL (3.80-5.40); RDW 19.1 % (11.5-15.5)
[2024-01-31 20:29] LABS: Glucose,Whole Blood 71 mg/dL (70-110)
[2024-01-31 21:01] LABS: INR 1.7 (<1.2); Prothrombin Time 17.5 sec (10.0-12.5)
[2024-01-31 21:50] LABS: Partial Thromboplastin Time >200.0 sec (22.0-30.0)
[2024-01-31] MEDS: SODIUM BICARBONATE TAB 650 MG TAB PO SCH (23:25)
[2024-01-31] MEDS: METOPROLOL TARTRATE 25 MG TAB PO SCH (23:25)
[2024-01-31] MEDS: TICAGRELOR 90 MG TAB PO SCH (23:25)
[2024-01-31 23:52] LABS: Lymphocytes # (M) 1.44 k/uL (1.0-4.8); Monocytes # (M) 1.44 k/uL (0-1.0); Neutrophils # (M) 17.92 k/uL (1.3-7.7); Neutrophils % (M) 87 %; Nucleated Red Blood Cells 7 /100 WBC (0-0); Total Cells Counted 200; WBC 20.6 k/uL (3.8-10.6)
[2024-01-31 23:54] LABS: Polychromasia Present
[2024-02-01] MEDS: ISOSORBIDE DINITRATE 20 MG TAB PO SCH (00:33)
[2024-02-01] MEDS: hydrALAZINE HCL 25 MG TAB PO SCH (00:33)
--- NOTE | 2024-02-01 05:34 | CA ---
Transthoracic Echo Report Name: Marcella Galvan Age: 43 Gender: F : 1980 Exam Date: 01/31/2024 18:28 Exam Location: [facility] Ht (in): 65 Wt (lb): 160 Ordering Physician: Anaya Cheek Attending/Referring Phys: Group Captain Mayra Pizarro RDCS Procedure CPT: Indications: chest pain, recent CT, SOB Cardiac Hx: Technical Quality: Fair Contrast 1: Total Dose (mL): Contrast 2: Total Dose (mL): MEASUREMENTS (Male / Female) Normal Values 2D ECHO LV Diastolic Diameter PLAX 4.7 cm 4.2 - 5.9 / 3.9 - 5.3 cm LV Systolic Diameter PLAX 3.6 cm IVS Diastolic Thickness 1.5 cm 0.6 - 1.0 / 0.6 - 0.9 cm LVPW Diastolic Thickness 1.6 cm 0.6 - 1.0 / 0.6 - 0.9 cm LV Relative Wall Thickness 0.7 RV Internal Dim ED PLAX 3.9 cm M-MODE Aortic Root Diameter MM 3.2 cm LA Systolic Diameter MM 4.8 cm LA Ao Ratio MM 1.5 AV Cusp Separation MM 1.5 cm DOPPLER AV Peak Velocity 78.4 cm/s AV Peak Gradient 2.5 mmHg AV Mean Velocity 61.1 cm/s AV Mean Gradient 1.6 mmHg AV Velocity Time Integral 12.1 cm LVOT Peak Velocity 68.3 cm/s LVOT Peak Gradient 1.9 mmHg LVOT Velocity Time Integral 9.9 cm MV Area PHT 4.6 cm??? Mitral E Point Velocity 136.5 cm/s Mitral A Point Velocity 49.9 cm/s Mitral E to A Ratio 2.7 MV Deceleration Time 164.4 ms FINDINGS Left Ventricle Moderately increased left ventricular wall thickness. Left ventricular cavity size normal. Global left ventricular hypokinesis. Left ventricular ejection fraction is estimated at 25-30 %. Grade 1 diastolic dysfunction. Right Ventricle Right ventricular dilatation. Right Atrium Mild right atrial dilatation. Left Atrium Mildly increased left atrial area. Mitral Valve Structurally normal mitral valve. Moderate mitral regurgitation. Centrally directed mitral regurgitation jet. Aortic Valve Trileaflet aortic valve. No aortic valve stenosis or regurgitation. Tricuspid Valve Structurally normal tricuspid valve. [id number] tricuspid regurgitation. Pulmonic Valve Structurally normal pulmonic valve. Pericardium Moderate pericardial effusion. Aorta Normal size aortic root and proximal ascending aorta. CONCLUSIONS Left ventricular ejection fraction 25-30% Moderately increased left ventricular wall thickness Moderate mitral regurgitation Moderate to severe tricuspid regurgitation Moderate pericardial effusion without tamponade physiology measuring 2.5 cm Previewed by: Dr. Nilton Al DO (Electronically Signed) Final Date: 01 February 2024 05:34
[2024-02-01 06:22] LABS: Glucose,Whole Blood 81 mg/dL (70-110)
[2024-02-01] MEDS ORDERED: HEPARIN SODIUM,PORCINE (1 ML) 2,500 UNIT in SODIUM CHLORIDE 0.9% 250 ML IRRIGATION PRN (07:00)
[2024-02-01] MEDS ORDERED: HEPARIN SODIUM,PORCINE 10,000 UNIT in SODIUM CHLORIDE 0.9% 1,000 ML IRRIGATION PRN (07:00)
[2024-02-01] MEDS: TORSEMIDE 20 MG TAB PO SCH (07:48)
[2024-02-01] MEDS: FOLIC ACID 1 MG TAB PO SCH (07:49)
[2024-02-01] MEDS: LOSARTAN 25 MG TAB PO SCH (07:49)
[2024-02-01] MEDS: LEVOTHYROXINE 125 MCG TAB PO SCH (07:52)
[2024-02-01] MEDS ORDERED: LEVOTHYROXINE 125 MCG TAB PO SCH (09:00)
[2024-02-01 09:44] LABS: Anisocytosis Slight; HGB 7.2 gm/dL (11.4-16.0); Hypochromasia Marked; MCH 27.4 pg (25.0-35.0); MCHC 31.2 g/dL (31.0-37.0); Mean Platelet Volume 10.8; Platelet Count 95 k/uL (150-450); Poikilocytosis Slight; RBC 2.61 m/uL (3.80-5.40); RDW 19.5 % (11.5-15.5)
[2024-02-01 09:46] LABS: African American GFR (CKD) 23 (>60 ml/min/1.73 sqM); Anion Gap 13 mmol/L; Blood Urea Nitrogen 43 mg/dL (7-17); Calcium 7.9 mg/dL (8.4-10.2); Carbon Dioxide 23 mmol/L (22-30); Chloride 90 mmol/L (98-107); Glucose 137 mg/dL (74-99); Non-African American GFR(CKD) 20 (>60 ml/min/1.73 sqM); Potassium 4.7 mmol/L (3.5-5.1); Sodium 126 mmol/L (137-145)
[2024-02-01 09:47] LABS: INR 1.5 (<1.2); Partial Thromboplastin Time 30.8 sec (22.0-30.0); Prothrombin Time 15.4 sec (10.0-12.5)
[2024-02-01] MEDS: EZETIMIBE 10 MG TAB PO SCH (09:55)
--- NOTE | 2024-02-01 10:34 | P.PN ---
Subjective Progress Note Date: 02/01/24 Consult reason: chest pain, shortness of breath History of present illness: History of present illness: Patient is a pleasant 43-year-old female with significant past medical history of CAD status post recent PCI last week, ALDEN secondary to acute tubular necrosis started on hemodialysis 01/19/2024, anemia of chronic disease, chronic systolic heart failure with reduced EF 20-25%, ischemic cardiomyopathy, history of right nephrectomy 2022, diabetes type 2, hyperlipidemia who presented to the emergency department with complaints of shortness of breath, chest pain, weakness, nausea/vomiting, and lightheadedness. She was discharged home on 01/27/2024 a fter acute anterior STEMI status post LAD stenting x 2. She was discharged home with LifeVest. She had been doing okay. She has not missed any dialysis treatments and had dialysis yesterday. Then this morning she was feeling more weak, nauseous, vomited, lightheaded and short of breath. She also reports having some chest fluttering sensation and stabbing chest pains. She does feel intermittent chills. She believes this is similar to when she had her prior TN a week ago. She does admit to compliance with her medications. She does have some small amount of bleeding when she wipes after a bowel movement. She states she is not making any urine. Chest x-ray shows cardiomegaly, no acute pulmonary process. Unable to access full record of prior admission as system was down during that time. Labs reviewed: WBC 15.1, hemoglobin 8.4, potassium 6.3, sodium 129, creatinine 3.68, troponin 16.3, BNP 124, 000. 01/31 Yesterday, patient was taken to the [facility] and found to have 95% stenosis PDA, 50 to 80% stenosis of the RCA, 70% of the PLV, 80% OM1, 95% apical LAD stenosis and patent LAD stent. Patient then underwent PCI of the distal RCA overlapping JORDI, postdilated with balloon. Recommended treating small caliber OM1 and apical LAD medically due to small caliber. Patient states she had 2 episodes on breathing heavy last night lasting about 30 seconds each. She complains of fee ling manager bench. No more chills. Patient complains of bodyaches possibly related to statin and Brilinta may be causing some shortness of breath. She remains on heparin gtt. blood pressure 107/74, heart rate 71, pulse ox 100% on 4 L nasal cannula. Echocardiogram reveals EF of 25 to 30%, moderately increased left ventricular wall thickness, moderate MR, moderate to severe TR, moderate pericardial effusion without tamponade. Yesterday, records from [facility] were reviewed and patient had a previous pericardial drain. Discussed plan with the patient to adjust medications to see if she has improvement of her symptoms of shortness of breath and muscle aches. Patient is on suicide precautions with safety supervisor at bedside. PHYSICAL EXAMINATION: This is a 43-year-old female in no apparent distress at the time of my examination. HEENT: Head is atraumatic, normocephalic. Pupils are equal, round. Sclerae anicteric. Conjunctivae are clear. Mucous membranes of the mouth are moist. Neck is supple. There is no jugular venous distention. No carotid bruit is heard. CHEST EXAMINATION: Lungs are clear to auscultation. No chest wall tenderness is noted on palpation or with deep breathing. HEART EXAMINATION: Heart regular rate and rhythm. S1, S2 heard. No murmurs, gallops or rub. ABDOMEN: Soft, nontender. Bowel sounds are heard. EXTREMITIES: 2+ peripheral pulses with no evidence of peripheral edema and no calf tenderness noted. NEUROLOGIC EXAMINATION: Patient is awake, alert and oriented x3. IMPRESSION AND PLAN: CAD status post PCI LAD x 2 Recent STEMI 1 week ago ALDEN secondary to acute tubular necrosis on hemodialysis Acute on chronic systolic heart failure, EF 20-25% Ischemic cardiomyopathy Chest pain Shortness of breath Dizziness Nausea/vomiting NSTEMI, elevated troponin possibly related to prior STEMI versus kidney failure versus new blockage status post LHC and PCI 01/30 Pericardial effusion of moderate size on echocardiogram. Patient had previous pericardial drainage done at [facility] PLAN: Patient will be scheduled for loading dose of Plavix 600 mg tonight at 5 PM, discontinue heparin drip 3 hours following. Tomorrow, patient will start Plavix 75 mg daily Discontinue statin and start patient on Zetia 10 mg daily Continue patient on aspirin 81 mg daily, hydralazine 25 mg 3 times daily, Isordil 20 mg 3 times daily, losartan 25 mg daily, Lopressor 25 mg twice daily, Demadex 40 mg daily Continue telemetry monitoring Monitor patient for symptoms of shortness of breath and muscle aches Further recommendations as patient progresses. Nurse practitioner note has been reviewed, I agree with documented findings and plan of care. Patient was seen and examined. Objective - Vital Signs Vital signs: Vital Signs Temp 97.5 F L 02/01/24 07:43 Pulse 71 02/01/24 07:43 Resp 18 02/01/24 07:43 BP 107/74 02/01/24 07:43 Pulse Ox 100 02/01/24 07:43 FiO2 Intake & Output 01/31/24 02/01/24 02/01/24 18:59 06:59 18:59 Intake Total 545.223 235 Output Total 3300 Balance -2754.777 235 Weight 72.575 kg Intake: IV 10 Invasive Line 1 10 Intake, IV Titration 35.223 Amount Heparin Sod,Pork in 0.45% 35.223 NaCl 25,000 unit In 0.45 % NaCl 1 250ml.bag @ 12 UNITS/KG/HR 8.709 mls/hr IV .Q24H JOANA Rx#: [id number] Oral 235 Hemodialysis 500 Output: Hemodialysis 1900 Hemodialysis Net Amount 1400 Other: # Voids 1 # Bowel Movements 0 - Labs CBC & Chem 7: 02/01/24 09:10 02/01/24 09:10 Labs: Abnormal Lab Results - Last 24 Hours (Table) 01/31/24 01/31/24 01/31/24 Range/Units 10:13 10:13 10:13 WBC 15.1 H (3.8-10.6) k/uL RBC 3.11 L (3.80-5.40) m/uL Hgb 8.4 L (11.4-16.0) gm/dL Hct 27.3 L (34.0-46.0) % MCHC 30.8 L (31.0-37.0) g/dL RDW 19.4 H (11.5-15.5) % Neutrophils # 12.8 H (1.3-7.7) k/uL Neutrophils # (Manual) 12.99 H (1.3-7.7) k/uL Monocytes # (Manual) (0-1.0) k/uL Nucleated RBCs 2 H (0-0) /100 WBC PT (10.0-12.5) sec INR (<1.2) APTT (22.0-30.0) sec Sodium 129 L (137-145) mmol/L Potassium 6.3 H* (3.5-5.1) mmol/L Chloride 90 L (98-107) mmol/L Carbon Dioxide 20 L (22-30) mmol/L BUN 55 H (7-17) mg/dL Creatinine 3.68 H (0.52-1.04) mg/dL Glucose 69 L (74-99) mg/dL Total Bilirubin 3.9 H (0.2-1.3) mg/dL AST 371 H (14-36) U/L ALT 433 H (4-34) U/L Alkaline Phosphatase 777 H (38-126) U/L Troponin I 16.300 H* (0.000-0.034) ng/mL Total Protein 6.0 L (6.3-8.2) g/dL Lipase 556 H (23-300) U/L 01/31/24 01/31/24 01/31/24 Range/Units 12:20 14:00 20:00 WBC (3.8-10.6) k/uL RBC (3.80-5.40) m/uL Hgb (11.4-16.0) gm/dL Hct (34.0-46.0) % MCHC (31.0-37.0) g/dL RDW (11.5-15.5) % Neutrophils # (1.3-7.7) k/uL Neutrophils # (Manual) (1.3-7.7) k/uL Monocytes # (Manual) (0-1.0) k/uL Nucleated RBCs (0-0) /100 WBC PT 14.8 H 17.5 H (10.0-12.5) sec INR 1.4 H 1.7 H (<1.2) APTT 21.9 L >200.0 H* (22.0-30.0) sec Sodium (137-145) mmol/L Potassium (3.5-5.1) mmol/L Chloride (98-107) mmol/L Carbon Dioxide (22-30) mmol/L BUN (7-17) mg/dL Creatinine (0.52-1.04) mg/dL Glucose (74-99) mg/dL Total Bilirubin (0.2-1.3) mg/dL AST (14-36) U/L ALT (4-34) U/L Alkaline Phosphatase (38-126) U/L Troponin I 13.800 H* (0.000-0.034) ng/mL Total Protein (6.3-8.2) g/dL Lipase (23-300) U/L 01/31/24 01/31/24 02/01/24 Range/Units 20:00 20:00 00:00 WBC 20.6 H (3.8-10.6) k/uL RBC 2.97 L (3.80-5.40) m/uL Hgb 7.8 L (11.4-16.0) gm/dL Hct 26.5 L (34.0-46.0) % MCHC 29.4 L (31.0-37.0) g/dL RDW 19.1 H (11.5-15.5) % Neutrophils # (1.3-7.7) k/uL Neutrophils # (Manual) 17.92 H (1.3-7.7) k/uL Monocytes # (Manual) 1.44 H (0-1.0) k/uL Nucleated RBCs 7 H (0-0) /100 WBC PT (10.0-12.5) sec INR (<1.2) APTT 149.9 H* (22.0-30.0) sec Sodium (137-145) mmol/L Potassium (3.5-5.1) mmol/L Chloride (98-107) mmol/L Carbon Dioxide (22-30) mmol/L BUN (7-17) mg/dL Creatinine (0.52-1.04) mg/dL Glucose (74-99) mg/dL Total Bilirubin (0.2-1.3) mg/dL AST (14-36) U/L ALT (4-34) U/L Alkaline Phosphatase (38-126) U/L Troponin I 16.700 H* (0.000-0.034) ng/mL Total Protein (6.3-8.2) g/dL Lipase (23-300) U/L
[2024-02-01 11:03] LABS: Neutrophils % (M) 91 %; Nucleated Red Blood Cells 9 /100 WBC (0-0); Total Cells Counted 200
[2024-02-01 11:04] LABS: Lymphocytes # (M) 1.32 k/uL (1.0-4.8); Monocytes # (M) 0.33 k/uL (0-1.0); Neutrophils # (M) 15.02 k/uL (1.3-7.7); WBC 16.5 k/uL (3.8-10.6)
[2024-02-01 11:07] LABS: Target Cells Present
[2024-02-01 11:08] LABS: Poikilocytosis (M) Present; Polychromasia Present
[2024-02-01 11:12] LABS: Glucose,Whole Blood 189 mg/dL (70-110)
--- NOTE | 2024-02-01 11:20 | P.NPCON ---
History of Present Illness - Reason for Consult acute renal failure - History of Present Illness Patient is a 43-year-old female with history of right nephrectomy last year for renal hematoma and chronic infection. Patient was recently discharged from the hospital on 01/27/2024 after admission for acute anterior IN status post coronary stenting. Patient developed acute kidney injury requiring initiation of hemodialysis. She remains hemodialysis dependent with minimal urine output. Also noted to have cardiomyopathy with EF of 20-25%. Patient also has underlying moderate pericardial effusion. No evidence of temponade. Patient is readmitted with complaints of shortness of breath. Patient also had chest tightness associated with lightheadedness. Status post cardiac catheterization yesterdaywith no new stents placed. Status post hemodialysis yesterday with UF of 1.5 L. Patient states shortness of breath has improved. There is also a component of anxiety and medications have been adjusted by psych. Chest x-ray did not show any pulmonary vascular congestion although left-sided filling pressures were elevated on cardiac cath. Patient was dialyzed after cardiac catheterization last night. Urine output remains low Review of Systems as per HPI Past Medical History Past Medical History: Heart Failure, Myocardial Infarction (IN), Renal Disease, Thyroid Disorder Additional Past Medical History / Comment(s): hemodialysis M,W,F starting january 2024, Last Myocardial Infarction Date:: 01/31/24 History of Any Multi-Drug Resistant Organisms: None Reported Past Surgical History: Cholecystectomy, Heart Catheterization, Heart Catheterization With Stent Additional Past Surgical History / Comment(s): right kidney removed 2022 Past Anesthesia/Blood Transfusion Reactions: No Reported Reaction Date of Last Stent Placement:: 01/31/24 Past Psychological History: Anxiety, Depression Smoking Status: Former smoker Past Alcohol Use History: None Reported Past Drug Use History: None Reported Medications and Allergies Home Medications Medication Instructions Recorded Confirmed Type Aspirin 81 mg PO DAILY 01/27/24 01/31/24 History Atorvastatin [Lipitor] 40 mg PO DAILY 01/27/24 01/31/24 History Empagliflozin [Jardiance] 10 mg PO DAILY 01/27/24 01/31/24 History Folic Acid 1 mg PO DAILY 01/27/24 01/31/24 History Isosorbide Dinitrate [Isordil] 20 mg PO TID #90 tab 01/27/24 01/31/24 Rx Levothyroxine Sodium [Synthroid] 125 mcg PO DAILY 01/27/24 01/31/24 History Losartan [Cozaar] 25 mg PO DAILY 01/27/24 01/31/24 History Metoprolol Tartrate [Lopressor] 25 mg PO BID #60 tab 01/27/24 01/31/24 Rx Nystatin 100,000 Unit/gm Powd 1 applic TOPICAL QID each 01/27/24 01/31/24 Rx [Mycostatin Powder] Pantoprazole [Protonix] 40 mg PO AC-BRKFST #30 tab 01/27/24 01/31/24 Rx Sodium Bicarbonate Tab 650 mg PO BID #60 tab 01/27/24 01/31/24 Rx Ticagrelor [Brilinta] 90 mg PO BID #60 tab 01/27/24 01/31/24 Rx Torsemide [Demadex] 40 mg PO DAILY #60 tab 01/27/24 01/31/24 Rx hydrALAZINE HCL [Apresoline] 25 mg PO TID #90 tab 01/27/24 01/31/24 Rx Doxylamine Succinate [Unisom] 25 mg PO HS PRN 01/31/24 01/31/24 History Loratadine [Claritin] 10 mg PO DAILY 01/31/24 01/31/24 History Allergies Allergy/AdvReac Type Severity Reaction Status Date / Time No Known Allergies Allergy Verified 01/24/24 18:33 Physical Exam Vitals: Vital Signs Temp Pulse Pulse Pulse Resp BP BP 02/01/24 07:43 97.5 F L 71 18 107/74 02/01/24 03:53 97.4 F L 76 18 95/71 01/31/24 23:08 97.6 F 83 16 115/80 01/31/24 20:00 97.6 F 75 75 16 99/74 01/31/24 18:59 01/31/24 17:53 74 16 121/75 01/31/24 17:51 78 17 121/75 01/31/24 17:50 74 16 121/75 01/31/24 15:10 98.1 F 79 18 130/83 01/31/24 12:31 79 01/31/24 12:29 80 18 142/91 01/31/24 12:10 75 Pulse Ox 02/01/24 07:43 100 02/01/24 03:53 97 01/31/24 23:08 100 01/31/24 20:00 100 01/31/24 18:59 98 01/31/24 17:53 99 01/31/24 17:51 100 01/31/24 17:50 99 01/31/24 15:10 01/31/24 12:31 01/31/24 12:29 100 01/31/24 12:10 Intake and Output 01/31/24 02/01/24 02/01/24 22:59 06:59 14:59 Intake Total 38.74 506.483 263.488 Output Total 3300 Balance 38.74 -2793.517 263.488 Intake: IV 10 Invasive Line 1 10 Intake, IV Titration 28.74 6.483 28.488 Amount Heparin Sod,Pork in 0.45% 28.74 6.483 28.488 NaCl 25,000 unit In 0.45 % NaCl 1 250ml.bag @ 12 UNITS/KG/HR 8.709 mls/hr IV .Q24H [facility] Rx#: [id number] Oral 235 Hemodialysis 500 Output: Hemodialysis 1900 Hemodialysis Net Amount 1400 Other: # Voids 0 1 # Bowel Movements 0 Weight 72.575 kg patient is awake, comfortable, in no acute distress. 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 Results - Lab Results Most recent lab results Calcium 7.9 mg/dL (8.4-10.2) L 02/01/24 09:10 Magnesium 2.3 mg/dL (1.6-2.3) 01/31/24 10:13 02/01/24 09:10 02/01/24 09:10 Assessment and Plan Assessment: 1. Acute kidney injury, hemodialysis dependent, oliguric maintained on Friday witnessed a Friday schedule via right IJ permacath. Patient was started on dialysis about 2 weeks ago. 2. Mild volume overload, improved post hemodialysis with UF of 1.5 L yesterday. 3. Moderate pericardial effusion with no evidence of tamponade, being dialyzed without heparin 4. Status post post recent acute anterior ST elevation IN status post stents to LAD on last admission. Status post repeat cardiac catheterization on 01/31/2024 with no new stent placement. 5. History of right nephrectomy in 2022 for chronic infection and renal shaan jevon 6. History of CK D stage IV with previous creatinine around 3.5 prior to her recent hospitalization last month. 7. Cardiomyopathy with EF of 20-25%, ischemic cardiomyopathy. Life Vest was ordered from last admission. Plan: hemodialysis in a.m. If patient develops worsening shortness of breath she will be dialyzed again today. discontinue sodium bicarb continue angiotensin receptor blockers. Okay to add SGLT2 inhibitors. Thank you for the consultation. We will continue to follow the patient with you during her hospitalization.
[2024-02-01 13:52] VITALS: BMI 26.6
[2024-02-01] MEDS: MAG HYDROX/AL HYDROX/SIMETH 30 ML CUP PO PRN (15:39)
[2024-02-01] MEDS: ALPRAZolam 0.25 MG TAB PO PRN (15:47)
[2024-02-01 16:29] LABS: Glucose,Whole Blood 208 mg/dL (70-110)
--- NOTE | 2024-02-01 16:57 | P.PN ---
Subjective Progress Note Date: 02/01/24 Interval History: 43-year-old female with past medical see significant for recent myocardial infarction with PCI last week, chronic systolic CHF with EF 20 to 25%, ischemic cardiomyopathy, history of right nephrectomy, history of ALDEN secondary to ATN started on hemodialysis 01/19/2024, diabetes mellitus, hypertension, hyperlipidemia who presented to ED with a complaint of shortness of breath, chest pain, weakness, nausea vomiting and lightheadedness. Patient was discharged home on 01/27/2024 after acute anterior STEMI status post LAD stenting X2. Patient was discharged home with LifeVest given echo showed EF of 20%. Patient reported that she was compliant with her medication and dialysis, had dialysis yesterday. Patient continued to feel weak, nauseous, vomited and lightheaded and along with shortness of breath. Patient also noticed some fluttering in the chest and stabbing chest pains. Reported intermittent chills no documented fever. Patient also reported small amount of bleeding after wiping with bowel movements. Patient chest x-ray showed cardiomegaly, no acute pulmonary process. Labs showed WBCs 15.1, hemoglobin 8.4, potassium 6.3, sodium 129, creatinine C3.68, troponin 16.3, proBNP 124,000. 01/31--patient was seen and examined today. 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 Patient then underwent PCI of the distal RCA overlapping JORDI, postdilated with balloon. Recommended treating small caliber OM1 and apical LAD medically due to small caliber. Echocardiogram showed EF 25 to 30%, moderate increased left ventricular wall thickness, moderate MR, moderate-severe TR, moderate pericardial effusion without tamponade. Assessment and plan: Chest pain: NSTEMI: Status post LHC and PCI 01/30 Pericardial effusion: Recent PCI LAD X2 Recent STEMI 1 week ago Acute on chronic systolic CHF with EF 20 to 25% Ischemic cardiomyopathy Continue home meds including dual antiplatelet Statin switch to Zetia per cardiology. Monitor with telemetry. Cardiology consulted and following, status post LHC and PCI 01/30 Currently on aspirin, Brilinta switched to Plavix, continue hydralazine, Isordil, losartan, Lopressor, Demadex. Heparin drip. ALDEN secondary to ATN on hemodialysis: On hemodialysis Friday and Friday Monitor fluid status, monitor electrolytes Nephrology consulted for maintenance hemodialysis through right IJ catheter DVT prophylaxis AC PHYSICAL EXAMINATION: GENERAL: The patient is A&O x3, NAD HEENT: EOMI, Sclerae anicteric, Moist Mucous membranes Neck: Supple, Non tender, No JVD PULMONARY: Equal breath souds B/L, No wheezing, No crackles. CARDIOVASCULAR: S1, S2 present. No murmurs, rubs, or gallops. ABDOMEN: Soft, nontender, nondistended, normoactive bowel sounds. No guarding or rebound tenderness. MUSCULOSKELETAL: No edema, No cyanosis. No clubbing. Normal ROM. Intact peripheral pulses. EXTREMITIES: No cyanosis, clubbing, or pedal edema. NEUROLOGICAL: CN 2-12 grossly intact. No FND Skin: No Rash REVIEW OF SYSTEMS: CONSTITUTIONAL: No fever or chills. CARDIOVASCULAR: No chest pain, palpitations or syncope. PULMONARY: No shortness of breath, no cough, sore throat. GASTROINTESTINAL: No nausea, vomiting, diarrhea, abdominal pain. : No Dysuria, urgency, frequency. Extremities: No edema. NEUROLOGICAL: No headaches, no weakness, or numbness Dictation was produced using [employer] dictation software. please excuse any grammatical, word or spelling errors. Objective - Vital Signs Vital signs: Vital Signs Temp 97.5 F L 02/01/24 07:43 Pulse 79 02/01/24 15:43 Resp 17 02/01/24 15:43 BP 102/72 02/01/24 15:43 Pulse Ox 98 02/01/24 15:43 FiO2 Intake & Output 01/31/24 02/01/24 02/01/24 18:59 06:59 18:59 Intake Total 545.223 263.488 Output Total 3300 Balance -2754.777 263.488 Weight 72.575 kg 72.575 kg Intake: IV 10 Invasive Line 1 10 Intake, IV Titration 35.223 28.488 Amount Heparin Sod,Pork in 0.45% 35.223 28.488 NaCl 25,000 unit In 0.45 % NaCl 1 250ml.bag @ 12 UNITS/KG/HR 8.709 mls/hr IV .Q24H [facility] Rx#: [id number] Oral 235 Hemodialysis 500 Output: Hemodialysis 1900 Hemodialysis Net Amount 1400 Other: # Voids 1 1 # Bowel Movements 0 - Labs CBC & Chem 7: 02/01/24 09:10 02/01/24 09:10 Labs: Abnormal Lab Results - Last 24 Hours (Table) 01/31/24 01/31/24 01/31/24 Range/Units 20:00 20:00 20:00 WBC 20.6 H (3.8-10.6) k/uL RBC 2.97 L (3.80-5.40) m/uL Hgb 7.8 L (11.4-16.0) gm/dL Hct 26.5 L (34.0-46.0) % MCHC 29.4 L (31.0-37.0) g/dL RDW 19.1 H (11.5-15.5) % Plt Count (150-450) k/uL Neutrophils # (Manual) 17.92 H (1.3-7.7) k/uL Monocytes # (Manual) 1.44 H (0-1.0) k/uL Nucleated RBCs 7 H (0-0) /100 WBC PT 17.5 H (10.0-12.5) sec INR 1.7 H (<1.2) APTT >200.0 H* (22.0-30.0) sec Sodium (137-145) mmol/L Chloride (98-107) mmol/L BUN (7-17) mg/dL Creatinine (0.52-1.04) mg/dL Glucose (74-99) mg/dL POC Glucose (mg/dL) (70-110) mg/dL Calcium (8.4-10.2) mg/dL Troponin I 16.700 H* (0.000-0.034) ng/mL 02/01/24 02/01/24 02/01/24 Range/Units 00:00 09:10 09:10 WBC 16.5 H (3.8-10.6) k/uL RBC 2.61 L (3.80-5.40) m/uL Hgb 7.2 L (11.4-16.0) gm/dL Hct 23.0 L (34.0-46.0) % MCHC (31.0-37.0) g/dL RDW 19.5 H (11.5-15.5) % Plt Count 95 L (150-450) k/uL Neutrophils # (Manual) 15.02 H (1.3-7.7) k/uL Monocytes # (Manual) (0-1.0) k/uL Nucleated RBCs 9 H (0-0) /100 WBC PT 15.4 H (10.0-12.5) sec INR 1.5 H (<1.2) APTT 149.9 H* 30.8 H (22.0-30.0) sec Sodium (137-145) mmol/L Chloride (98-107) mmol/L BUN (7-17) mg/dL Creatinine (0.52-1.04) mg/dL Glucose (74-99) mg/dL POC Glucose (mg/dL) (70-110) mg/dL Calcium (8.4-10.2) mg/dL Troponin I (0.000-0.034) ng/mL 02/01/24 02/01/24 02/01/24 Range/Units 09:10 11:11 16:27 WBC (3.8-10.6) k/uL RBC (3.80-5.40) m/uL Hgb (11.4-16.0) gm/dL Hct (34.0-46.0) % MCHC (31.0-37.0) g/dL RDW (11.5-15.5) % Plt Count (150-450) k/uL Neutrophils # (Manual) (1.3-7.7) k/uL Monocytes # (Manual) (0-1.0) k/uL Nucleated RBCs (0-0) /100 WBC PT (10.0-12.5) sec INR (<1.2) APTT (22.0-30.0) sec Sodium 126 L (137-145) mmol/L Chloride 90 L (98-107) mmol/L BUN 43 H (7-17) mg/dL Creatinine 2.75 H (0.52-1.04) mg/dL Glucose 137 H (74-99) mg/dL POC Glucose (mg/dL) 189 H 208 H (70-110) mg/dL Calcium 7.9 L (8.4-10.2) mg/dL Troponin I (0.000-0.034) ng/mL
[2024-02-01] MEDS: ONDANSETRON 4 MG/2 ML VIAL IVP PRN (17:16)
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
[2024-02-01] MEDS: CLOPIDOGREL 75 MG TAB PO ONE (17:36)
[2024-02-01 20:23] LABS: Glucose,Whole Blood 188 mg/dL (70-110)
[2024-02-01] MEDS: traZODone HCL 50 MG TAB PO PRN (21:57)
[2024-02-02] MEDS: ALPRAZolam 0.5 MG TAB PO PRN (02:50)
[2024-02-02 06:26] LABS: Glucose,Whole Blood 114 mg/dL (70-110)
[2024-02-02] MEDS: DAPAGLIFLOZIN PROPANEDIOL 10 MG TABLET PO SCH (07:46)
[2024-02-02] MEDS: CLOPIDOGREL 75 MG TAB PO SCH (07:47)
[2024-02-02 08:09] LABS: Anion Gap 19 mmol/L; Blood Urea Nitrogen 62 mg/dL (7-17); Calcium 7.5 mg/dL (8.4-10.2); Carbon Dioxide 16 mmol/L (22-30); Chloride 89 mmol/L (98-107); Glucose 82 mg/dL (74-99); Sodium 124 mmol/L (137-145)
[2024-02-02 09:01] LABS: African American GFR (CKD) 16 (>60 ml/min/1.73 sqM); Non-African American GFR(CKD) 14 (>60 ml/min/1.73 sqM)
[2024-02-02] MEDS: INSULIN REGULAR 100 UNIT/ML VIAL (IV) IV ONE ×2 (09:35→23:00)
[2024-02-02] MEDS: CALCIUM GLUCONATE IN NACL 1 GM in SALINE 1 100ML.BAG IVPB ONE (09:35)
[2024-02-02] MEDS: DEXTROSE 50% SYRINGE 50 ML IVP STA ×2 (09:36→23:00)
[2024-02-02 10:21] LABS: Anisocytosis Slight; HCT 21.1 % (34.0-46.0); Hypochromasia Marked; MCH 26.2 pg (25.0-35.0); MCHC 30.2 g/dL (31.0-37.0); MCV 86.8 fL (80.0-100.0); Mean Platelet Volume 11.1; Poikilocytosis Slight; RBC 2.43 m/uL (3.80-5.40); RDW 19.2 % (11.5-15.5)
[2024-02-02] MEDS: MIDODRINE 5 MG TAB PO SCH (10:31)
[2024-02-02] MEDS: MIDODRINE 5 MG TAB PO STA (10:36)
[2024-02-02 10:55] LABS: HGB 6.4 gm/dL (11.4-16.0)
[2024-02-02] MEDS ORDERED: SODIUM ZIRCONIUM CYCLOSILICATE 10 GM PACKET PO ONE (11:00)
[2024-02-02 11:28] LABS: Glucose,Whole Blood 90 mg/dL (70-110)
--- NOTE | 2024-02-02 11:41 | P.PN ---
Subjective Patient is seen for follow-up for acute kidney injury currently hemodialysis dependent. Patient is seen on hemodialysis. Her blood pressure has been low with systolic in the 80s and it dropped down to 70s as well. She has received 2 doses of mido drine. Hemoglobin just came back at 6.4 g/dL. Patient will be transfused packed RBCs. Serum potassium was elevated at 7.0 today. She did receive IV insulin and D50. No significant complaints of shortness of breath today. Objective - Vital Signs Vital signs: Vital Signs Temp 97.6 F 02/02/24 03:42 Pulse 67 02/02/24 11:08 Resp 15 02/02/24 11:08 BP 80/34 02/02/24 11:08 Pulse Ox 100 02/02/24 09:19 FiO2 Intake & Output 02/01/24 02/02/24 02/02/24 18:59 06:59 18:59 Intake Total 713.226 21.031 Balance 713.226 21.031 Weight 72.575 kg 76.5 kg Intake: IV 10 Invasive Line 3 10 Intake, IV Titration 78.226 11.031 Amount Heparin Sod,Pork in 0.45% 78.226 11.031 NaCl 25,000 unit In 0.45 % NaCl 1 250ml.bag @ 12 UNITS/KG/HR 8.709 mls/hr IV .Q24H [facility] Rx#: [id number] Oral 635 Other: # Voids 1 0 # Bowel Movements 0 - Exam patient is awake, comfortable, in no acute distress. 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 - Labs CBC & Chem 7: 02/02/24 10:00 02/02/24 06:13 Labs: Abnormal Lab Results - Last 24 Hours (Table) 02/01/24 02/01/24 02/02/24 Range/Units 16:27 20:21 06:13 RBC (3.80-5.40) m/uL Hgb (11.4-16.0) gm/dL Hct (34.0-46.0) % MCHC (31.0-37.0) g/dL RDW (11.5-15.5) % Sodium 124 L (137-145) mmol/L Potassium 7.0 H* (3.5-5.1) mmol/L Chloride 89 L (98-107) mmol/L Carbon Dioxide 16 L (22-30) mmol/L BUN 62 H (7-17) mg/dL Creatinine 3.65 H (0.52-1.04) mg/dL POC Glucose (mg/dL) 208 H 188 H (70-110) mg/dL Calcium 7.5 L (8.4-10.2) mg/dL 02/02/24 02/02/24 Range/Units 06:25 10:00 RBC 2.43 L (3.80-5.40) m/uL Hgb 6.4 L* (11.4-16.0) gm/dL Hct 21.1 L (34.0-46.0) % MCHC 30.2 L (31.0-37.0) g/dL RDW 19.2 H (11.5-15.5) % Sodium (137-145) mmol/L Potassium (3.5-5.1) mmol/L Chloride (98-107) mmol/L Carbon Dioxide (22-30) mmol/L BUN (7-17) mg/dL Creatinine (0.52-1.04) mg/dL POC Glucose (mg/dL) 114 H (70-110) mg/dL Calcium (8.4-10.2) mg/dL Assessment and Plan Assessment: 1. Acute kidney injury, hemodialysis dependent, oliguric maintained on Friday witnessed a Friday schedule via right IJ permacath. Patient was started on dialysis about 2 weeks ago. 2. Volume overload, improved post hemodialysis with UF of 1.5 L 3. Moderate pericardial effusion with no evidence of tamponade, being dialyzed without heparin 4. Status post post recent acute anterior ST elevation PR status post stents to LAD on last admission. Status post repeat cardiac catheterization on 01/31/2024 with no new stent placement. 5. History of right nephrectomy in 2022 for chronic infection and renal hematoma 6. History of CK D stage IV with previous creatinine around 3.5 prior to her recent hospitalization last month. 7. Cardiomyopathy with EF of 20-25%, ischemic cardiomyopathy. Life Vest was ordered from last admission. 8. Hyperkalemia associated with oliguric acute kidney injury 9. Hypotension associated with severe anemia. Plan: Transfuse packed RBCs. We will hold dialysis until PRBCs transfusion is complete as patient remains quite hypotensive in spite of midodrine. Add parameters for antihypertensive medications to hold pre hemodialysis.
[2024-02-02 12:16] LABS: Platelet Count 94 k/uL (150-450)
[2024-02-02 12:18] LABS: Lymphocytes # (M) 0.81 k/uL (1.0-4.8); Neutrophils # (M) 9.29 k/uL (1.3-7.7); Neutrophils % (M) 92 %; Nucleated Red Blood Cells 3 /100 WBC (0-0); Total Cells Counted 200; WBC 10.1 k/uL (3.8-10.6)
[2024-02-02 12:19] LABS: Polychromasia Present
[2024-02-02 12:46] LABS: Glucose,Whole Blood 77 mg/dL (70-110)
[2024-02-02] MEDS: SODIUM CHLORIDE 0.9% 500 ML 500 ML IV ONE ×3 (12:58→15:05)
--- NOTE | 2024-02-02 13:09 | P.PN ---
Subjective History of present illness: Patient is a pleasant 43-year-old female with significant past medical history of CAD status post recent PCI last week, ALDEN secondary to acute tubular necrosis started on hemodialysis 01/19/2024, anemia of chronic disease, chronic systolic heart failure with reduced EF 20-25%, ischemic cardiomyopathy, history of right nephrectomy 2022, diabetes type 2, hyperlipidemia who presented to the emergency department with complaints of shortness of breath, chest pain, weakness, nausea/vomiting, and lightheadedness. She was discharged home on 01/27/2024 after acute anterior STEMI status post LAD stenting x 2. She was discharged home with LifeVest. She had been doing okay. She has not missed any dialysis treatments and had dialysis yesterday. Then this morning she was feeling more weak, nauseous, vomited, lightheaded and short of breath. She also reports having some chest fluttering sensation and stabbing chest pains. She does feel intermittent chills. She believes this is similar to when she had her prior GA a week ago. She does admit to compliance with her medications. She does have some small amount of bleeding when she wipes after a bowel movement. She states she is not making any urine. Chest x-ray shows cardiomegaly, no acute pulmonary process. Unable to access full record of prior admission as system was down during that time. Labs reviewed: WBC 15.1, hemoglobin 8.4, potassium 6.3, sodium 129, creatinine 3.68, troponin 16.3, BNP 124, 000. 01/31 Yesterday, patient was taken to the veterinary laboratory technician and found to have 95% stenosis PDA, 50 to 80% stenosis of the RCA, 70% of the PLV, 80% OM1, 95% apical LAD stenosis and patent LAD stent. Patient then underwent PCI of the distal RCA overlapping JORDI, postdilated with balloon. Recommended treating small caliber OM1 and apical LAD medically due to small caliber. Patient states she had 2 episodes on breathing heavy last night lasting about 30 seconds each. She complains of feeling ophthalmologist retina specialist. No more chills. Patient complains of bodyaches possibly related to statin and Brilinta may be causing some shortness of breath. She remains on heparin gtt. blood pressure 107/74, heart rate 71, pulse ox 100% on 4 L nasal cannula. Echocardiogram reveals EF of 25 to 30%, moderately increased left ventricular wall thickness, moderate MR, moderate to severe TR, moderate pericardial effusion without tamponade. Yesterday, records from [facility] were reviewed and patient had a previous pericardial drain. Discussed plan with the patient to adjust medications to see if she has improvement of her symptoms of shortness of breath and muscle aches. Patient is on suicide precautions with safety belt installer at bedside. 02/01 patient seen and examined. Patient denies any chest pain or pressure. Her blood pressures have been borderline and has been getting the Isordil 20 mg 3 times a day, hydralazine 25 mg 3 times a day, torsemide 40 mg daily. A dditionally getting Midrin 5 mg 3 times a day. She was transitioned from Brilinta to Plavix yesterday and heparin drip stopped. She does not have much of an appetite and has not been eating much. Blood pressures this morning were 90s over 60s this morning and her hydralazine was not given however Isordil was. She denies any fevers or chills. inability to complete with no fluid taken off secondary to hypotension. The pressures 70s over 40s and has been feeling more lightheaded and therefore a team was called. Hemoglobin resulted at 6.4. Potassium 7.0. Remains in normal sinus rhythm. EKG not showing any significant change with Q waves anteriorseptally PHYSICAL EXAMINATION: This is a 43-year-old female in no apparent distress at the time of my examination. HEENT: Head is atraumatic, normocephalic. Pupils are equal, round. Sclerae anicteric. Conjunctivae are clear. Mucous membranes of the mouth are moist. Neck is supple. There is no jugular venous distention. No carotid bruit is heard. CHEST EXAMINATION: Lungs are clear to auscultation. No chest wall tenderness is noted on palpation or with deep breathing. HEART EXAMINATION: Heart regular rate and rhythm. S1, S2 heard. No murmurs, gallops or rub. ABDOMEN: Soft, nontender. Bowel sounds are heard. EXTREMITIES: 2+ peripheral pulses with no evidence of peripheral edema and no calf tenderness noted. NEUROLOGIC EXAMINATION: Patient is awake, alert and oriented x3. IMPRESSION AND PLAN: CAD status post PCI LAD x 2 Recent STEMI 1 week ago ALDEN secondary to acute tubular necrosis on hemodialysis Acute on chronic systolic heart failure, EF 20-25% Ischemic cardiomyopathy Chest pain Shortness of breath Dizziness Nausea/vomiting NSTEMI, elevated troponin possibly related to prior STEMI versus kidney failure versus new blockage status post LHC and PCI 01/30 Pericardial effusion of moderate size on echocardiogram. Patient had previous pericardial drainage done at [facility] hypotension, suspect related to decreased intravascular volume, anemia PLAN: anemia, no obvious source of bleed. In part related to kidney disease. She is having worsening hypotension which may be related to decreased oral intake and a nemia. Check lactic acid and repeat blood work. May be influenced by her potassium and monitor response of dialysis. If still hypotensive she will need transfer to ICU and likely further workup for sepsis. Repeat 2-D echo to evaluate for any worsening of her pericardial effusion with prior history of pericardial drain at [facility] previously. Continue with aspirin and Plavix with no source of bleeding. Decrease doses of metoprolol as well as hydralazine and Isordil with hold parameters. Prognosis guarded. Objective - Vital Signs Vital signs: Vital Signs Temp 97.6 F 02/02/24 03:42 Pulse 66 02/02/24 12:08 Resp 17 02/02/24 11:40 BP 66/51 02/02/24 13:01 Pulse Ox 98 02/02/24 11:40 FiO2 Intake & Output 02/01/24 02/02/24 02/02/24 18:59 06:59 18:59 Intake Total 713.226 21.031 Balance 713.226 21.031 Weight 72.575 kg 76.5 kg Intake: IV 10 Invasive Line 3 10 Intake, IV Titration 78.226 11.031 Amount Heparin Sod,Pork in 0.45% 78.226 11.031 NaCl 25,000 unit In 0.45 % NaCl 1 250ml.bag @ 12 UNITS/KG/HR 8.709 mls/hr IV .Q24H JOANA Rx#: [id number] Oral 635 Other: # Voids 1 0 # Bowel Movements 0 - Labs CBC & Chem 7: 02/02/24 10:00 02/02/24 06:13 Labs: Abnormal Lab Results - Last 24 Hours (Table) 02/01/24 02/01/24 02/02/24 Range/Units 16:27 20:21 06:13 RBC (3.80-5.40) m/uL Hgb (11.4-16.0) gm/dL Hct (34.0-46.0) % MCHC (31.0-37.0) g/dL RDW (11.5-15.5) % Plt Count (150-450) k/uL Neutrophils # (Manual) (1.3-7.7) k/uL Lymphocytes # (Manual) (1.0-4.8) k/uL Nucleated RBCs (0-0) /100 WBC Sodium 124 L (137-145) mmol/L Potassium 7.0 H* (3.5-5.1) mmol/L Chloride 89 L (98-107) mmol/L Carbon Dioxide 16 L (22-30) mmol/L BUN 62 H (7-17) mg/dL Creatinine 3.65 H (0.52-1.04) mg/dL POC Glucose (mg/dL) 208 H 188 H (70-110) mg/dL Calcium 7.5 L (8.4-10.2) mg/dL Crossmatch 02/02/24 02/02/24 02/02/24 Range/Units 06:25 10:00 11:15 RBC 2.43 L (3.80-5.40) m/uL Hgb 6.4 L* (11.4-16.0) gm/dL Hct 21.1 L (34.0-46.0) % MCHC 30.2 L (31.0-37.0) g/dL RDW 19.2 H (11.5-15.5) % Plt Count 94 L (150-450) k/uL Neutrophils # (Manual) 9.29 H (1.3-7.7) k/uL Lymphocytes # (Manual) 0.81 L (1.0-4.8) k/uL Nucleated RBCs 3 H (0-0) /100 WBC Sodium (137-145) mmol/L Potassium (3.5-5.1) mmol/L Chloride (98-107) mmol/L Carbon Dioxide (22-30) mmol/L BUN (7-17) mg/dL Creatinine (0.52-1.04) mg/dL POC Glucose (mg/dL) 114 H (70-110) mg/dL Calcium (8.4-10.2) mg/dL Crossmatch See Detail
[2024-02-02 13:49] LABS: African American GFR (CKD) 19 (>60 ml/min/1.73 sqM); Anion Gap 13 mmol/L; Blood Urea Nitrogen 53 mg/dL (7-17); Calcium 7.4 mg/dL (8.4-10.2); Carbon Dioxide 21 mmol/L (22-30); Chloride 93 mmol/L (98-107); Glucose 52 mg/dL (74-99); Non-African American GFR(CKD) 16 (>60 ml/min/1.73 sqM); Potassium 4.7 mmol/L (3.5-5.1); Sodium 127 mmol/L (137-145)
[2024-02-02] MEDS ORDERED: LORazepam 1 MG TAB PO PRN (14:34)
--- NOTE | 2024-02-02 14:37 | P.CN ---
Psychiatric Consult - . Consult date: 02/02/24 Consult:: INTERIM HISTORY: Met with patient at the bedside this afternoon. Her was visiting and she asked him to step out briefly so we can talk. She explained that she has had a difficult morning. The A Team was called due to concerning changes in her blood pressure. At the time of our visit today she was receiving 1 unit of PRBCs. Ms. Galvan reports that she feels physically and emotionally tired. She has struggled with her limited mobility and not being able to get out of bed or move around. She does not know how to describe her mood but says she is not feeling hopeless. Regarding last night she found the trazodone a little helpful for sleep onset but it was not enough to help her sustain sleep during the night. Additionally the alprazolam helps some with her anxiety but the effect was not as significant as she was hoping for and she continued to have intermittent episodes of panic particularly when she had to get up or try and get to sleep. We discussed that it will likely be helpful to transition from alprazolam to something that is a bit longer lasting and consider an increased dose of the trazodone to help her feel drowsy and ultimately get to sleep a little better. She denies suicidal ideation, intent, or plan. She also denies homicidal ideation, intent, or plan. She has not been experiencing any auditory or visual hallucinations. Upon leaving Ms. Galvan's room her nurse shared that she is going to be transferred to the ICU soon due to persistent hypotension. MENTAL STATUS EXAM: General Appearance: Patient appears to be stated age is tired, but pleasant and cooperative. Patient appears to have appropriate hygiene and grooming wearing hospital gown with eyes closed for much of the visit. Behavior: Patient is calmly lying in bed without any agitated behavior. Speech: Patient's speech is fluent and nonpressured. Mood/Affect: Patient reports their mood is "tired", affect is congruent and constricted. Suicidality/Homicidality: Patient denies having any suicidal or homicidal ideation, intent, or plan. Perceptions: Patient denies any visual hallucinations and denies any auditory hallucinations Though content/process: There is no evidence of any delusional thought content and thought process is linear and goal-directed. Memory and concentration: AOX3, grossly intact for the purposes of this session. Can recall recent and remote history. Judgment and insight: Good IMPRESSIONS: Marcella Galvan is a 43 year old woman experienced a recent decline in her health status following an CA which resulted in need for hemodialysis due to acute kidney injury and ongoing cardiac symptoms. She is presently readmitted after experiencing chest pain, and a psychiatry consult was initially requested due to positive mental health screening at admission. During the intial evaluation she denied suicidal ideation, intent, or plan. She has been experiencing significant anxiety and intermittent panic that has made sleep difficult in particular. She has found the alprazolam started by the primary team to be helpful though not as robust of an effect nor as long-lasting as she would find helpful. Additionally she did try trazodone last night to help with sleep onset but the effects of this were not sustained and she did not get a full night of sleep. Today we discussed transitioning from alprazolam to a longer acting alternative. While clonazepam is a great option we will plan to use lorazepam in the event she is unable to take oral medication consistently and requires medication to be administered via IV. However at time of discharge it may be more helpful to discharge on an equivalent dose of clonazepam. Additionally will plan to increase trazodone to 100 mg at bedtime to promote drowsiness and sleep onset. This medication can be increased further to a usual max of 200 mg at bedtime if 100 mg is not effective. Lastly, Ms. Galvan may benefit from starting an SSRI if anxiety symptoms are more persistent and seem to be occurring throughout the day as opposed to isolated to bedtime. Given her present renal function would recommend starting sertraline at 25 mg daily and titrating gradually from there if this is considered. She denies suicidal and homicidal ideation, intent, and plan. 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 Would not exceed 4 mg of lorazepam in 24 hours via either route of administration. -Request Art Librarian assistance to provide patient with outpatient mental health/psychiatry resources for appropriate follow up upon discharge -Communicated plan to patient's nurse -Will sign off at this time. Please contact if further follow-up is needed. -Please contact with any questions.
[2024-02-02 14:49] LABS: Glucose,Whole Blood 88 mg/dL (70-110)
[2024-02-02] MEDS: NOREPINEPHRINE 4 MG in SODIUM CHLORIDE 0.9% 250 ML IV SCH (14:55)
[2024-02-02] MEDS: ISOSORBIDE DINITRATE 20 MG TAB PO SCH (15:56)
[2024-02-02] MEDS: hydrALAZINE HCL 10 MG TAB PO SCH (15:56)
--- NOTE | 2024-02-02 16:08 | P.PN ---
Subjective Progress Note Date: 02/02/24 Interval History: 43-year-old female with past medical see significant for recent myocardial infarction with PCI last week, chronic systolic CHF with EF 20 to 25%, ischemic cardiomyopathy, history of right nephrectomy, history of ALDEN secondary to ATN started on hemodialysis 01/19/2024, diabetes mellitus, hypertension, hyperlipidemia who presented to ED with a complaint of shortness of breath, chest pain, weakness, nausea vomiting and lightheadedness. Patient was discharged home on 01/27/2024 after acute anterior STEMI status post LAD stenting X2. Patient was discharged home with LifeVest given echo showed EF of 20%. Patient reported that she was compliant with her medication and dialysis, had dialysis yesterday. Patient continued to feel weak, nauseous, vomited and lightheaded and along with shortness of breath. Patient also noticed some fluttering in the chest and stabbing chest pains. Reported intermittent chills no documented fever. Patient also reported small amount of bleeding after wiping with bowel movements. Patient chest x-ray showed cardiomegaly, no acute pulmonary process. Labs showed WBCs 15.1, hemoglobin 8.4, potassium 6.3, sodium 129, creatinine C3.68, troponin 16.3, proBNP 124,000. 01/31--patient was seen and examined today. Patient complains of generalized fatigue and weakness, chest pain is better, complain of shortness of breath.Yesterday, patient was taken to the cathode maker and found to have 95% stenosis PDA, 50 to 80% stenosis of the RCA, 70% of the PLV, 80% OM1, 95% apical LAD stenosis and patent LAD stent. Patient then underwent PCI of the distal RCA overlapping JORDI, postdilated with balloon. Recommended treating small caliber OM1 and apical LAD medically due to small caliber. Echocardiogram showed EF 25 to 30%, moderate increased left ventricular wall thickness, moderate MR, moderate-severe TR, moderate pericardial effusion without tamponade. 02/01--patient was seen and examined today. Potassium was elevated 7.0, patient was treated with insulin per hyperkalemia protocol, patient later on underwent hemodialysis patient blood pressure dropped during hemodialysis today for which patient's dialysis was stopped after 1 hour. Patient's hemoglobin was 6.4, 1 unit of packed RBCs ordered. Patient was given midodrine by nephrology during h emodialysis for low blood pressure. Patient blood pressure persistently remained low. Patient later transferred to ICU. ICU consulted. Assessment and plan: Chest pain: NSTEMI: Status post LHC and PCI 01/30 Pericardial effusion: Recent PCI LAD X2 Recent STEMI 1 week ago Acute on chronic systolic CHF with EF 20 to 25% Ischemic cardiomyopathy: Hypotension: Continue home meds including dual antiplatelet Statin switch to Zetia per cardiology. Monitor with telemetry. Cardiology consulted and following, status post LHC and PCI 01/30 Currently on aspirin, Brilinta switched to Plavix, continue hydralazine, Isordil, losartan, Lopressor, Demadex. Initially was on heparin drip. Hypotension: Patient blood pressure low. Hemodialysis was terminated after 1 hour due to low blood pressure. As needed midodrine per nephrology. ALDEN secondary to ATN on hemodialysis: On hemodialysis Friday and Friday Monitor fluid status, monitor electrolytes Nephrology consulted for maintenance hemodialysis through right IJ catheter Acute on chronic anemia: No sign and symptom of active bleed. Monitor H&H. Transfuse for hemoglobin less than 7.0. DVT prophylaxis SCD PHYSICAL EXAMINATION: GENERAL: The patient is A&O x3, NAD HEENT: EOMI, Sclerae anicteric, Moist Mucous membranes Neck: Supple, Non tender, No JVD PULMONARY: Equal breath souds B/L, No wheezing, No crackles. CARDIOVASCULAR: S1, S2 present. No murmurs, rubs, or gallops. ABDOMEN: Soft, nontender, nondistended, normoactive bowel sounds. No guarding or rebound tenderness. MUSCULOSKELETAL: No edema, No cyanosis. No clubbing. Normal ROM. Intact peripheral pulses. EXTREMITIES: No cyanosis, clubbing, or pedal edema. NEUROLOGICAL: CN 2-12 grossly intact. No FND Skin: No Rash REVIEW OF SYSTEMS: CONSTITUTIONAL: No fever or chills. CARDIOVASCULAR: No chest pain, palpitations or syncope. PULMONARY: No shortness of breath, no cough, sore throat. GASTROINTESTINAL: No nausea, vomiting, diarrhea, abdominal pain. : No Dysuria, urgency, frequency. Extremities: No edema. NEUROLOGICAL: No headaches, no weakness, or numbness Dictation was produced using [employer] dictation software. please excuse any grammatical, word or spelling errors. Objective - Vital Signs Vital signs: Vital Signs Temp 96.4 F L 02/02/24 14:39 Pulse 60 02/02/24 15:00 Resp 13 02/02/24 15:00 BP 69/44 02/02/24 15:00 Pulse Ox 100 02/02/24 15:00 FiO2 Intake & Output 02/01/24 02/02/24 02/02/24 18:59 06:59 18:59 Intake Total 713.226 21.031 9.861 Balance 713.226 21.031 9.861 Weight 72.575 kg 76.5 kg Intake: IV 10 Invasive Line 3 10 Intake, IV Titration 78.226 11.031 9.861 Amount Heparin Sod,Pork in 0.45% 78.226 11.031 NaCl 25,000 unit In 0.45 % NaCl 1 250ml.bag @ 12 UNITS/KG/HR 8.709 mls/hr IV .Q24H JOANA Rx#: [id number] Norepinephrine 4 mg In 9.861 Sodium Chloride 0.9% 250 ml @ 0.03 MCG/KG/MIN 8. 744 mls/hr IV .Q24H JOANA Rx#:[id number] Oral 635 Blood Product 0 Rc As-1 Unit 0 [id number] Other: # Voids 1 0 0 # Bowel Movements 0 - Labs CBC & Chem 7: 02/02/24 10:00 02/02/24 13:35 Labs: Abnormal Lab Results - Last 24 Hours (Table) 02/01/24 02/01/24 02/02/24 Range/Units 16:27 20:21 06:13 RBC (3.80-5.40) m/uL Hgb (11.4-16.0) gm/dL Hct (34.0-46.0) % MCHC (31.0-37.0) g/dL RDW (11.5-15.5) % Plt Count (150-450) k/uL Neutrophils # (Manual) (1.3-7.7) k/uL Lymphocytes # (Manual) (1.0-4.8) k/uL Nucleated RBCs (0-0) /100 WBC Sodium 124 L (137-145) mmol/L Potassium 7.0 H* (3.5-5.1) mmol/L Chloride 89 L (98-107) mmol/L Carbon Dioxide 16 L (22-30) mmol/L BUN 62 H (7-17) mg/dL Creatinine 3.65 H (0.52-1.04) mg/dL Glucose (74-99) mg/dL POC Glucose (mg/dL) 208 H 188 H (70-110) mg/dL Plasma Lactic Acid Sorin (0.7-2.0) mmol/L Calcium 7.5 L (8.4-10.2) mg/dL Crossmatch 02/02/24 02/02/24 02/02/24 Range/Units 06:25 10:00 11:15 RBC 2.43 L (3.80-5.40) m/uL Hgb 6.4 L* (11.4-16.0) gm/dL Hct 21.1 L (34.0-46.0) % MCHC 30.2 L (31.0-37.0) g/dL RDW 19.2 H (11.5-15.5) % Plt Count 94 L (150-450) k/uL Neutrophils # (Manual) 9.29 H (1.3-7.7) k/uL Lymphocytes # (Manual) 0.81 L (1.0-4.8) k/uL Nucleated RBCs 3 H (0-0) /100 WBC Sodium (137-145) mmol/L Potassium (3.5-5.1) mmol/L Chloride (98-107) mmol/L Carbon Dioxide (22-30) mmol/L BUN (7-17) mg/dL Creatinine (0.52-1.04) mg/dL Glucose (74-99) mg/dL POC Glucose (mg/dL) 114 H (70-110) mg/dL Plasma Lactic Acid Sorin (0.7-2.0) mmol/L Calcium (8.4-10.2) mg/dL Crossmatch See Detail 02/02/24 02/02/24 Range/Units 13:35 13:35 RBC (3.80-5.40) m/uL Hgb (11.4-16.0) gm/dL Hct (34.0-46.0) % MCHC (31.0-37.0) g/dL RDW (11.5-15.5) % Plt Count (150-450) k/uL Neutrophils # (Manual) (1.3-7.7) k/uL Lymphocytes # (Manual) (1.0-4.8) k/uL Nucleated RBCs (0-0) /100 WBC Sodium 127 L (137-145) mmol/L Potassium (3.5-5.1) mmol/L Chloride 93 L (98-107) mmol/L Carbon Dioxide 21 L (22-30) mmol/L BUN 53 H (7-17) mg/dL Creatinine 3.28 H (0.52-1.04) mg/dL Glucose 52 L (74-99) mg/dL POC Glucose (mg/dL) (70-110) mg/dL Plasma Lactic Acid Sorin 5.8 H* (0.7-2.0) mmol/L Calcium 7.4 L (8.4-10.2) mg/dL Crossmatch
[2024-02-02 17:23] LABS: ABG Base Excess -3.5 mmol/L; ABG HCO3 19 mmol/L (21-25); ABG Oxygen Saturation 100.7 % (94-97); ABG PCO2 24 mmHg (35-45); ABG TCO2 20 mmol/L (19-24); Allen Test Performed? Yes
[2024-02-02 17:28] LABS: ABG PO2 >420 mmHg (83-108)
--- NOTE | 2024-02-02 18:06 | XR ---
EXAMINATION TYPE: XR chest 1V portable DATE OF EXAM: 02/02/2024 COMPARISON: 01/31/2024 INDICATION: Low O2 TECHNIQUE: Single frontal view of the chest is obtained. FINDINGS: The heart size is largest. The pulmonary vasculature is normal. A retrocardiac opacity may be present on the left . Correlate for atelectasis. Small amount of fluid could be considered. Catheter is on the right with the tip in the right atrium. IMPRESSION: 1. Arterial megaly. 2. Suspected small left pleural effusion and/or atelectasis
[2024-02-02] MEDS: VASOPRESSIN 60 UNIT in SODIUM CHLORIDE 0.9% 150 ML IV SCH (18:12)
--- NOTE | 2024-02-02 18:28 | P.CNPUL ---
History of Present Illness Consult date: 02/02/24 Requesting physician: Shahab Cohen Chief complaint: Hypotension, renal failure, coronary artery disease. History of present illness: Pulmonary consult dated February 02, 2024. 43-year-old female with history of coronary disease, myocardial infarction, with recent catheterization, and stents placed to the LAD and right coronary artery, recent development of renal failure, with dialysis on Friday, Friday, Friday, hyperlipidemia, hypothyroidism, and hypertension. The patient was seen in the emergency department, on January 30, with chest pain. The patient was recently discharged from the hospital on February 26. At that time, she was discharged with a LifeVest, because echocardiogram revealed a ejection fraction of 20%. In addition to chest pain she was complaining of shortness of breath. The day prior to admission, she went to dialysis, and had no issues. The patient went back to the catheterization laboratory on January 30, and Dr. Al, did a PCI of the right coronary artery, and 2 additional stents were placed. The LAD was stented on the prior admission. I was notified by the charge nurse today, the patient should be transferred to the intensive care unit, because she needed blood transfusions, and was hypotensive, and likely will require norepinephrine. I gave consent for the patient to be transferred to the intensive care unit, and came in, the placed a right femoral triple-lumen catheter, for administration of blood, and norepinephrine. The patient has a hemodialysis catheter, in the right neck area. The patient was seen in room 261. Current laboratory includes a white count of 10.1, hemoglobin 6.4, hematocrit 21.1, and a platelet count of 94,000. Blood gases show pO2 of 420, pCO2 of 24, and a pH of 7.50. This blood gases consistent with a respiratory alkalosis. This was done while the patient was on high flow nasal cannula, and a nonrebreather mask. Sodium 127, potassium 4.7, chlorides 93, CO2 21, anion gap 13, BUN 53, creatinine 3.28. Lactic acid was 5.8. Calcium was 7.4. Chest x-ray shows evidence of cardiomegaly, and a small left-sided pleural effusion. Review of Systems REVIEW OF SYSTEMS: CONSTITUTIONAL: [Negative.] NEUROLOGIC: [ Negative.] HEENT: [ Negative.] CARDIAC: Low blood pressure. PULMONARY: Shortness of breath. GI: [Negative.] : [Negative.] RHEUMATOLOGIC: [ Negative.] IMMUNOLOGIC: [ Negative.] ENDOCRINE: [Negative. ] DERMATOLOGIC: [Negative.] Past Medical History Past Medical History: Myocardial Infarction (PA), Renal Disease Additional Past Medical History / Comment(s): hemodialysis M,W,F starting january 2024, Last Myocardial Infarction Date:: 01/31/24 History of Any Multi-Drug Resistant Organisms: None Reported Past Surgical History: Heart Catheterization, Heart Catheterization With Stent Additional Past Surgical History / Comment(s): right kidney removed 2022 Past Anesthesia/Blood Transfusion Reactions: No Reported Reaction Date of Last Stent Placement:: 01/31/24 Past Psychological History: Anxiety, Depression Smoking Status: Former smoker Past Alcohol Use History: None Reported Past Drug Use History: None Reported Medications and Allergies Home Medications Medication Instructions Recorded Confirmed Type Aspirin 81 mg PO DAILY 01/27/24 01/31/24 History Atorvastatin [Lipitor] 40 mg PO DAILY 01/27/24 01/31/24 History Empagliflozin [Jardiance] 10 mg PO DAILY 01/27/24 01/31/24 History Folic Acid 1 mg PO DAILY 01/27/24 01/31/24 History Isosorbide Dinitrate [Isordil] 20 mg PO TID #90 tab 01/27/24 01/31/24 Rx Levothyroxine Sodium [Synthroid] 125 mcg PO DAILY 01/27/24 01/31/24 History Losartan [Cozaar] 25 mg PO DAILY 01/27/24 01/31/24 History Metoprolol Tartrate [Lopressor] 25 mg PO BID #60 tab 01/27/24 01/31/24 Rx Nystatin 100,000 Unit/gm Powd 1 applic TOPICAL QID each 01/27/24 01/31/24 Rx [Mycostatin Powder] Pantoprazole [Protonix] 40 mg PO AC-BRKFST #30 tab 01/27/24 01/31/24 Rx Sodium Bicarbonate Tab 650 mg PO BID #60 tab 01/27/24 01/31/24 Rx Ticagrelor [Brilinta] 90 mg PO BID #60 tab 01/27/24 01/31/24 Rx Torsemide [Demadex] 40 mg PO DAILY #60 tab 01/27/24 01/31/24 Rx hydrALAZINE HCL [Apresoline] 25 mg PO TID #90 tab 01/27/24 01/31/24 Rx Doxylamine Succinate [Unisom] 25 mg PO HS PRN 01/31/24 01/31/24 History Loratadine [Claritin] 10 mg PO DAILY 01/31/24 01/31/24 History Allergies Allergy/AdvReac Type Severity Reaction Status Date / Time No Known Allergies Allergy Verified 01/24/24 18:33 Physical Exam Osteopathic Statement: *. No significant issues noted on an osteopathic st ructural exam other than those noted in the History and Physical/Consult. Vitals: Vital Signs Temp Pulse Pulse Pulse Pulse Resp BP 02/02/24 17:08 97.0 F L 68 16 02/02/24 15:00 60 13 69/44 02/02/24 14:45 61 16 62/44 02/02/24 14:39 96.4 F L 60 20 02/02/24 14:15 02/02/24 14:13 64 15 54/49 02/02/24 14:09 02/02/24 14:04 65 15 02/02/24 14:03 65 15 68/39 02/02/24 13:47 65 02/02/24 13:42 02/02/24 13:31 02/02/24 13:27 02/02/24 13:19 63 02/02/24 13:14 02/02/24 13:01 02/02/24 12:51 02/02/24 12:42 02/02/24 12:28 02/02/24 12:08 66 02/02/24 11:40 63 17 02/02/24 11:08 67 15 02/02/24 10:33 02/02/24 09:19 02/02/24 07:43 74 18 02/02/24 03:42 97.6 F 68 20 02/02/24 00:00 97.5 F L 75 16 02/01/24 20:00 97.9 F 79 18 BP Pulse Ox 02/02/24 17:08 90/46 02/02/24 15:00 100 02/02/24 14:45 100 02/02/24 14:39 99 02/02/24 14:15 60/45 02/02/24 14:13 98 02/02/24 14:09 57/49 02/02/24 14:04 68/39 98 02/02/24 14:03 97 02/02/24 13:47 71/40 02/02/24 13:42 69/53 02/02/24 13:31 72/50 02/02/24 13:27 72/48 02/02/24 13:19 76/49 02/02/24 13:14 66/48 02/02/24 13:01 66/51 02/02/24 12:51 66/54 02/02/24 12:42 88/62 02/02/24 12:28 72/50 02/02/24 12:08 73/48 02/02/24 11:40 73/51 98 02/02/24 11:08 80/34 02/02/24 10:33 70/49 02/02/24 09:19 100 02/02/24 07:43 96/68 100 02/02/24 03:42 98/63 100 02/02/24 00:00 91/60 99 02/01/24 20:00 98/65 97 Intake and Output 02/02/24 02/02/24 02/02/24 06:59 14:59 22:59 Intake Total 0 1019.861 Output Total 700 Balance 0 319.861 Intake: Intake, IV Titration 9.861 Amount Norepinephrine 4 mg In 9.861 Sodium Chloride 0.9% 250 ml @ 0.03 MCG/KG/MIN 8. 744 mls/hr IV .Q24H [facility] Rx#:[id number] Blood Product 0 310 Rc As-1 Unit 0 [id number] Rc As-1 Unit 0 310 [id number] Hemodialysis 700 Output: Hemodialysis 0 Hemodialysis Net Amount 700 Other: # Voids 0 0 # Bowel Movements 0 Weight 76.5 kg No acute distress, lethargic, currently on high flow nasal cannula, and a nonrebreather mask. HEENT examination is grossly unremarkable. Neck supple. Full range of motion. No adenopathy thyromegaly or neck vein distention. Cardiovascular examination reveals regular rhythm rate. S1-S2 normal. No S3 or S4. No discernible murmur noted. Heart sounds are distant. Heart rate 70 bpm. Lungs reveal clear breath sounds. Few scattered rhonchi. No crackles or wheezes. Breath sounds equal. Saturations are 100%, on both the high flow nasal cannula, and nonrebreather mask. Abdomen soft without bowel sounds. No masses or tenderness. Extremities are intact. No cyanosis clubbing or edema. Skin is without rash or lesion. Neurologic examination is brief but nonfocal. Results - Laboratory Findings CBC and BMP: 02/02/24 10:00 02/02/24 13:35 ABG ABG pH 7.50 (7.35-7.45) H 02/02/24 17:15 ABG pCO2 24 mmHg (35-45) L 02/02/24 17:15 ABG pO2 >420 mmHg (83-108) H 02/02/24 17:15 ABG O2 Saturation 100.7 % (94-97) H 02/02/24 17:15 PT/INR, D-dimer PT 15.4 sec (10.0-12.5) H 02/01/24 09:10 INR 1.5 (<1.2) H 02/01/24 09:10 Abnormal lab findings: Abnormal Labs 01/31/24 01/31/24 01/31/24 10:13 10:13 10:13 WBC 15.1 H RBC 3.11 L Hgb 8.4 L Hct 27.3 L MCHC 30.8 L RDW 19.4 H Plt Count Neutrophils # 12.8 H Neutrophils # (Manual) 12.99 H Lymphocytes # (Manual) Monocytes # (Manual) Nucleated RBCs 2 H PT INR APTT ABG pH ABG pCO2 ABG pO2 ABG HCO3 ABG O2 Saturation Sodium 129 L Potassium 6.3 H* Chloride 90 L Carbon Dioxide 20 L BUN 55 H Creatinine 3.68 H Glucose 69 L POC Glucose (mg/dL) Plasma Lactic Acid Sorin Calcium Total Bilirubin 3.9 H AST 371 H ALT 433 H Alkaline Phosphatase 777 H Troponin I 16.300 H* Total Protein 6.0 L Lipase 556 H Crossmatch 01/31/24 01/31/24 01/31/24 12:20 14:00 20:00 WBC RBC Hgb Hct MCHC RDW Plt Count Neutrophils # Neutrophils # (Manual) Lymphocytes # (Manual) Monocytes # (Manual) Nucleated RBCs PT 14.8 H 17.5 H INR 1.4 H 1.7 H APTT 21.9 L >200.0 H* ABG pH ABG pCO2 ABG pO2 ABG HCO3 ABG O2 Saturation Sodium Potassium Chloride Carbon Dioxide BUN Creatinine Glucose POC Glucose (mg/dL) Plasma Lactic Acid Sorin Calcium Total Bilirubin AST ALT Alkaline Phosphatase Troponin I 13.800 H* Total Protein Lipase Crossmatch 01/31/24 01/31/24 02/01/24 20:00 20:00 00:00 WBC 20.6 H RBC 2.97 L Hgb 7.8 L Hct 26.5 L MCHC 29.4 L RDW 19.1 H Plt Count Neutrophils # Neutrophils # (Manual) 17.92 H Lymphocytes # (Manual) Monocytes # (Manual) 1.44 H Nucleated RBCs 7 H PT INR APTT 149.9 H* ABG pH ABG pCO2 ABG pO2 ABG HCO3 ABG O2 Saturation Sodium Potassium Chloride Carbon Dioxide BUN Creatinine Glucose POC Glucose (mg/dL) Plasma Lactic Acid Sorin Calcium Total Bilirubin AST ALT Alkaline Phosphatase Troponin I 16.700 H* Total Protein Lipase Crossmatch 02/01/24 02/01/24 02/01/24 09:10 09:10 09:10 WBC 16.5 H RBC 2.61 L Hgb 7.2 L Hct 23.0 L MCHC RDW 19.5 H Plt Count 95 L Neutrophils # Neutrophils # (Manual) 15.02 H Lymphocytes # (Manual) Monocytes # (Manual) Nucleated RBCs 9 H PT 15.4 H INR 1.5 H APTT 30.8 H ABG pH ABG pCO2 ABG pO2 ABG HCO3 ABG O2 Saturation Sodium 126 L Potassium Chloride 90 L Carbon Dioxide BUN 43 H Creatinine 2.75 H Glucose 137 H POC Glucose (mg/dL) Plasma Lactic Acid Sorin Calcium 7.9 L Total Bilirubin AST ALT Alkaline Phosphatase Troponin I Total Protein Lipase Crossmatch 02/01/24 02/01/24 02/01/24 11:11 16:27 20:21 WBC RBC Hgb Hct MCHC RDW Plt Count Neutrophils # Neutrophils # (Manual) Lymphocytes # (Manual) Monocytes # (Manual) Nucleated RBCs PT INR APTT ABG pH ABG pCO2 ABG pO2 ABG HCO3 ABG O2 Saturation Sodium Potassium Chloride Carbon Dioxide BUN Creatinine Glucose POC Glucose (mg/dL) 189 H 208 H 188 H Plasma Lactic Acid Sorin Calcium Total Bilirubin AST ALT Alkaline Phosphatase Troponin I Total Protein Lipase Crossmatch 02/02/24 02/02/24 02/02/24 06:13 06:25 10:00 WBC RBC 2.43 L Hgb 6.4 L* Hct 21.1 L MCHC 30.2 L RDW 19.2 H Plt Count 94 L Neutrophils # Neutrophils # (Manual) 9.29 H Lymphocytes # (Manual) 0.81 L Monocytes # (Manual) Nucleated RBCs 3 H PT INR APTT ABG pH ABG pCO2 ABG pO2 ABG HCO3 ABG O2 Saturation Sodium 124 L Potassium 7.0 H* Chloride 89 L Carbon Dioxide 16 L BUN 62 H Creatinine 3.65 H Glucose POC Glucose (mg/dL) 114 H Plasma Lactic Acid Sorin Calcium 7.5 L Total Bilirubin AST ALT Alkaline Phosphatase Troponin I Total Protein Lipase Crossmatch 02/02/24 02/02/24 02/02/24 11:15 13:35 13:35 WBC RBC Hgb Hct MCHC RDW Plt Count Neutrophils # Neutrophils # (Manual) Lymphocytes # (Manual) Monocytes # (Manual) Nucleated RBCs PT INR APTT ABG pH ABG pCO2 ABG pO2 ABG HCO3 ABG O2 Saturation Sodium 127 L Potassium Chloride 93 L Carbon Dioxide 21 L BUN 53 H Creatinine 3.28 H Glucose 52 L POC Glucose (mg/dL) Plasma Lactic Acid Sorin 5.8 H* Calcium 7.4 L Total Bilirubin AST ALT Alkaline Phosphatase Troponin I Total Protein Lipase Crossmatch See Detail 02/02/24 17:15 WBC RBC Hgb Hct MCHC RDW Plt Count Neutrophils # Neutrophils # (Manual) Lymphocytes # (Manual) Monocytes # (Manual) Nucleated RBCs PT INR APTT ABG pH 7.50 H ABG pCO2 24 L ABG pO2 >420 H ABG HCO3 19 L ABG O2 Saturation 100.7 H Sodium Potassium Chloride Carbon Dioxide BUN Creatinine Glucose POC Glucose (mg/dL) Plasma Lactic Acid Sorin Calcium Total Bilirubin AST ALT Alkaline Phosphatase Troponin I Total Protein Lipase Crossmatch - Diagnostic Findings Chest x-ray: image reviewed Assessment and Plan Assessment: Recent ST segment elevation myocardial infarction, with stenting of the LAD and more recently, on January 30, stenting of the right coronary artery. Recent development of renal failure, requiring hemodialysis. Acute anemia, requiring 2 units of packed red blood cells. Anion gap metabolic acidosis, secondary to lactic acidemia, and renal failure. Acute hypoxemic respiratory failure secondary to fluid overload. Severe cardiomyopathy, with an ejection fraction of 20%. History of previous right nephrectomy. History of anxiety/depression. History of hypothyroidism. History of hyperlipidemia. History of hypertension. Prior history of tobacco use. Plan: Plan dated February 02, 2024. The patient is transferred to the intensive care unit, room 261. The patient is lacking IV access, so I placed a right femoral triple-lumen catheter. This is for the administration of blood, because of her anemia, as well as n orepinephrine, for her hypotension. Labs, x-rays, medications are reviewed. We will continue to follow the patient, and make recommendations where appropriate. The patient's overall prognosis remains guarded. The patient's blood gas showed a pO2 that was greater than 420, pCO2 of 24, and a pH of 7.50. This blood gases consistent with respiratory alkalosis, acute. Time with Patient: Greater than 30
[2024-02-02] MEDS: TERBUTALINE FOR EXTRAVASATION 1 MG/ML VIAL SQ STA (18:31)
[2024-02-02 19:38] LABS: African American GFR (CKD) 18 (>60 ml/min/1.73 sqM); Anion Gap 18 mmol/L; Blood Urea Nitrogen 55 mg/dL (7-17); Calcium 7.8 mg/dL (8.4-10.2); Carbon Dioxide 13 mmol/L (22-30); Chloride 96 mmol/L (98-107); Glucose 103 mg/dL (74-99); Non-African American GFR(CKD) 15 (>60 ml/min/1.73 sqM); Sodium 127 mmol/L (137-145)
[2024-02-02 20:40] LABS: Potassium 6.1 mmol/L (3.5-5.1)
[2024-02-02] MEDS: METOPROLOL TARTRATE 12.5 MG TAB PO SCH (20:58)
[2024-02-02] MEDS: traZODone HCL 100 MG TAB PO SCH (21:43)
[2024-02-02] MEDS: LORazepam 2 MG/ML INJ IV PRN (21:44)
[2024-02-02 22:10] LABS: Anisocytosis Slight; HCT 35.7 % (34.0-46.0); Hypochromasia Marked; MCH 27.6 pg (25.0-35.0); MCHC 30.4 g/dL (31.0-37.0); MCV 90.7 fL (80.0-100.0); Mean Platelet Volume 11.9; Poikilocytosis Slight; RBC 3.94 m/uL (3.80-5.40); RDW 17.6 % (11.5-15.5)
--- NOTE | 2024-02-02 22:58 | XR ---
EXAMINATION TYPE: XR chest 1V portable DATE OF EXAM: 02/02/2024 CLINICAL HISTORY: Difficulty breathing progress study. TECHNIQUE: Single AP portable upright view of the chest is obtained. COMPARISON: Chest x-ray from earlier today FINDINGS: Stable large bore right internal jugular dialysis catheter. Persistent cardiomegaly with p erhaps mild central vascular congestion. No new focal airspace opacity or pneumothorax seen bilateral ly. Osseous structures are intact. IMPRESSION: Cardiomegaly with perhaps mild central vascular congestion. No significant change from x- ray earlier today.
[2024-02-02] MEDS: LIDOCAINE 1% INJ 10MG/ML (20 ML MDV) ONE (23:00)
[2024-02-02 23:06] LABS: HGB 10.9 gm/dL (11.4-16.0)
[2024-02-02 23:07] LABS: Platelet Count 94 k/uL (150-450)
[2024-02-02 23:23] LABS: ABG Base Excess -14.8 mmol/L; ABG HCO3 11 mmol/L (21-25); ABG PCO2 25 mmHg (35-45); ABG PH 7.25 (7.35-7.45); ABG PO2 349 mmHg (83-108); ABG TCO2 12 mmol/L (19-24)
[2024-02-02 23:26] LABS: Glucose,Whole Blood 146 mg/dL (70-110)
[2024-02-02] MEDS: SODIUM BICARB 8.4% 50 ML SYR (1 MEQ/ML) ONE ×2 (23:30→23:40)
[2024-02-02 23:39] LABS: Allen Test Performed? no
[2024-02-02 23:42] LABS: Band Neutrophils % 1 %; Neutrophils % (M) 92 %; Nucleated Red Blood Cells 9 /100 WBC (0-0); Total Cells Counted 200
[2024-02-02 23:43] LABS: Lymphocytes # (M) 0.73 k/uL (1.0-4.8); Monocytes # (M) 0.73 k/uL (0-1.0); WBC 18.3 k/uL (3.8-10.6)
[2024-02-02 23:50] LABS: Polychromasia Present
[2024-02-03] MEDS: CALCIUM GLUCONATE IN NACL 1 GM in SALINE 1 100ML.BAG IVPB ONE (00:03)
--- NOTE | 2024-02-03 00:15 | P.PCN ---
Date of Procedure: 02/03/24 Preoperative Diagnosis: Hypotension and shock Postoperative Diagnosis: Hypotension and shock Procedure(s) Performed: Insertion of a right brachial arterial line Indications for Procedure: Continuous blood pressure monitoring and frequent blood draws Description of Procedure: Informed consent was obtained, and a procedural timeout was performed . The patient was placed in supine position. The right brachial region was prepared in a sterile fashion, and a sterile drape was applied. The right brachial artery was palpated, easily cannulated, and a guidewire was placed. A Cook catheter was inserted over the guidewire, and the guidewire was removed. There was good arterial blood flow, good arterial waveform, and no complications. The line was secured with using a 3-0 silk suture.
[2024-02-03] MEDS ORDERED: PROPOFOL 10 MG/ML 20 ML VIAL IV ONE (00:47)
[2024-02-03 00:52] LABS: Glucose,Whole Blood 92 mg/dL (70-110)
[2024-02-03] MEDS: propofoL 100 ML IV ONE (00:54)
--- NOTE | 2024-02-03 01:16 | XR ---
EXAMINATION TYPE: XR chest 1V portable DATE OF EXAM: 02/03/2024 CLINICAL HISTORY: Difficulty breathing 2 placement. TECHNIQUE: Single AP portable supine view of the chest is obtained. COMPARISON: Chest x-ray from one day earlier FINDINGS: There is new endotracheal tube terminating at the aortic knob level approximately 1 to 2 c m above the shaheen. There is an orogastric tube projecting below diaphragm. Stable large bore right internal jugular dialysis catheter. Persistent cardiomegaly with perhaps mild central vascular congestion. Left greater than right bibasilar opacities. Osseous structures are int act. IMPRESSION: 1. New orogastric tube satisfactory in position. 2. New endotracheal tube 1 to 2 cm above the shaheen. Advise pulling back 2 cm to be more ideal positi on. 3. Cardiomegaly with perhaps mild central vascular congestion and left greater than right bibasilar a cute infiltrate and/or atelectasis and possibly small to tiny left pleural effusion.
[2024-02-03 01:27] LABS: ABG Base Excess -7.2 mmol/L; ABG HCO3 18 mmol/L (21-25); ABG Oxygen Saturation 100.1 % (94-97); ABG PCO2 35 mmHg (35-45); ABG PH 7.33 (7.35-7.45); ABG PO2 314 mmHg (83-108); ABG TCO2 19 mmol/L (19-24)
[2024-02-03 01:31] LABS: Anion Gap 19 mmol/L; Blood Urea Nitrogen 53 mg/dL (7-17); Calcium 7.8 mg/dL (8.4-10.2); Carbon Dioxide 17 mmol/L (22-30); Chloride 96 mmol/L (98-107); Glucose 83 mg/dL (74-99); Sodium 132 mmol/L (137-145)
[2024-02-03 01:33] LABS: Allen Test Performed? no
[2024-02-03 01:36] LABS: African American GFR (CKD) 19 (>60 ml/min/1.73 sqM); Non-African American GFR(CKD) 16 (>60 ml/min/1.73 sqM)
[2024-02-03] MEDS: NOREPINEPHRINE 32 MG in SODIUM CHLORIDE 0.9% 218 ML IV SCH (02:58)
[2024-02-03] MEDS: HYDROCORTISONE SUCCINATE 100 MG/2 ML VIAL IV STA (04:00)
[2024-02-03 04:15] LABS: ABG Base Excess -11.3 mmol/L; ABG HCO3 14 mmol/L (21-25); ABG Oxygen Saturation 98.8 % (94-97); ABG PCO2 27 mmHg (35-45); ABG PH 7.31 (7.35-7.45); ABG PO2 137 mmHg (83-108); ABG TCO2 15 mmol/L (19-24)
[2024-02-03 04:36] LABS: Allen Test Performed? no
[2024-02-03] MEDS ORDERED: SODIUM BICARB 8.4% 50 ML SYR (1 MEQ/ML) ONE ×2 (05:42→05:43)
[2024-02-03] MEDS ORDERED: EPINEPHrine 10 ML SYRINGE (0.1 MG/ML) ONE (05:42)
[2024-02-03] MEDS: SODIUM BICARB 8.4% 50 ML SYR (1 MEQ/ML) IV STA (05:42)
[2024-02-03] MEDS ORDERED: EPINEPHrine 4 MG in DEXTROSE 5% IN WATER 250 ML IV SCH (06:00)
--- NOTE | 2024-02-03 06:22 | P.EN ---
I am seeing this patient in follow-up, she has had recent NV and PCI/stenting to LAD. She returned on 01/31/2024 and was diagnosed with a non-ST elevation NV, subsequently undergoing PCI/stenting of the right coronary artery with 2 additional stents. She was eventually transferred, to the intensive care unit, as she was hypotensive. She has received 2 units of packed red blood cells for anemia Repeat hemoglobin up to 10.9 g/dL. Echocardiogram done 01/31/2024 estimating a ejection fraction of 20 to 30%. Moderate to severe mitral and tricuspid regurgitation noted. She was also noted to have a moderate-sized pericardial effusion. Suspect cardiogenic shock. Throughout the night, patient became progressively more hypotensive and in shock state worsened, eventually becoming maxed on vasopressor support in the form of norepinephrine at 0.5 mcg/kg/min as well as vasopressin at physiological dose. I did speak to Dr. Al earlier in the night, patient did have a follow-up echocardiogram yesterday, and patient's moderate size pericardial effusion was reportedly stable. No tamponade features. Due to clinical instability and unresponsiveness, patient was intubated. Initial ventilator settings assist- control, respiratory rate 16, tidal volume 400, FiO2 100%, PEEP of 5. Most recent ABG consistent with metabolic acidosis. PaO2 137, pCO2 27, pH of 7.31. Patient has received multiple amps of sodium bicarbonate throughout the night. Patient also underwent hemodialysis, but this was terminated early as the patient was hemodynamically unstable. Dr. Reddy was called and updated on patient's clinical deterioration. He recommended stress dose of Solu-Cortef. Unfortunately, despite maximal efforts patient had asystole cardiac arrest at 0542, and a CODE BLUE was called overhead. Patient's and next of kin at bedside. ACLS protocol was followed. Sound physicians responded to bedside. I also called and updated Dr. Reddy, no further recommendations at this time. Resuscitative efforts continued for 15 minutes, no sustained ROSC was achieved. At this point, patient's has asked for us to stop resuscitation attempts. Patient at 0556.
--- NOTE | 2024-02-03 07:50 | XR ---
EXAMINATION TYPE: XR chest 1V portable DATE OF EXAM: 02/03/2024 4:50 AM CLINICAL INDICATION: Female, 43 years old with history of Tube placement; COMPARISON: Chest radiographs from 02/03/2024 TECHNIQUE: XR chest 1V portable Frontal view of the chest. FINDINGS: Lungs/Pleura: Stable appearance of the lungs. There is no evidence of pleural effusion, focal consoli dation, or pneumothorax. Pulmonary vascularity: Unremarkable. Heart/mediastinum: Cardiomediastinal silhouette is unremarkable. Musculoskeletal: No acute osseous pathology. Other findings: None Lines/Tubes: Endotracheal tube with distal tip 2.7 cm above the shaheen. Nasogastric tube with its distal tip and side-port projecting under the diaphragm. Right internal jugular central venous catheter with distal tip at the cavoatrial junction. IMPRESSION: Support tubes in satisfactory position. No significant change of the lungs.
--- NOTE | 2024-02-03 07:53 | CA ---
Transthoracic Echo Report Name: Marcella Galvan Age: 43 Gender: F : 1980 Exam Date: 02/02/2024 18:04 Exam Location: [place] [facility] Ht (in): 65 Wt (lb): 168 Ordering Physician: Nilton Al DO ([email or web address]) Attending/Referring Phys: Roofing Machine Tender Jovana Cotton, BRUNO Procedure CPT: Indications: evaluate pericardial effusion Cardiac Hx: Technical Quality: Fair Contrast 1: Total Dose (mL): Contrast 2: Total Dose (mL): MEASUREMENTS (Male / Female) Normal Values 2D ECHO LV Diastolic Diameter PLAX 5.2 cm 4.2 - 5.9 / 3.9 - 5.3 cm LV Systolic Diameter PLAX 4.4 cm IVS Diastolic Thickness 1.4 cm 0.6 - 1.0 / 0.6 - 0.9 cm LVPW Diastolic Thickness 1.5 cm 0.6 - 1.0 / 0.6 - 0.9 cm LV Relative Wall Thickness 0.6 RV Internal Dim ED PLAX 3.2 cm LA Systolic Diameter LX 4.6 cm 3.0 - 4.0 / 2.7 - 3.8 cm DOPPLER TR Peak Velocity 222.8 cm/s TR Peak Gradient 19.8 mmHg Right Ventricular Systolic Press 39.3 mmHg FINDINGS Left Ventricle Left ventricular ejection fraction is estimated at 20-25%. Moderately increased septal wall thickness. Moderately increased posterior wall thickness. Severely reduced global left ventricular systolic function. Right Ventricle Mild to moderate right ventricular dilatation. Right Atrium Severe right atrial dilatation. Left Atrium Moderately increased left atrial diameter. Mitral Valve Severe mitral regurgitation. Aortic Valve Tricuspid Valve Severe tricuspid regurgitation. Pulmonic Valve Pericardium Large pericardial effusion, located posteriorly. Small pericardial effusion located anteriorly. Aorta CONCLUSIONS Left ventricular ejection fraction 2024% Moderately increased left ventricular wall thickness Mild to moderate right ventricular dilation Septal flattening and diastole consistent with RV volume overload Moderate to severe central mitral regurgitation. If concern of severe mitral regurgitation consider WILMAR Severe tricuspid regurgitation Large pericardial effusion measuring 2.7 cm loculated around the left ventricular inferior, inferolateral and anterolateral wall. No tamponade physiology Previewed by: Dr. Nilton Al DO (Electronically Signed) Final Date: 03 February 2024 07:53
[2024-02-03 09:15] VITALS: BP 119/83; PULSE 77; RESP 18; TEMP 97.3
--- NOTE | 2024-02-03 16:02 | P.DS ---
Providers Date of admission: 01/31/24 13:29 Expected date of discharge: 02/03/24 Attending physician: Shahab Cohen MD Consults: 01/31/24 13:35 Consult Physician Urgent Consulting Provider: Cardiology Trevon Consult Reason/Comments: chest pain, nstemi Do you want consulting provider notified?: Already Contacted Consult Physician Urgent Consulting Provider: Nicole Varner Consult Reason/Comments: esrd on hd Do you want consulting provider notified?: Yes 01/31/24 17:36 Consult Physician Routine Consulting Provider: Cardiology Trevon Consult Reason/Comments: Post Interventional Patient Do you want consulting provider notified?: Already Contacted 01/31/24 18:06 Consult Physician Routine Consulting Provider: Dallas Mcrae Consult Reason/Comments: Suicide screening assessment-high score Do you want consulting provider notified?: Yes 02/02/24 11:31 Consult Physician Routine Consulting Provider: Greg Helms Consult Reason/Comments: blood in stool, low hgb Do you want consulting provider notified?: Yes 02/02/24 14:26 Consult Physician Urgent Consulting Provider: Carlos Reddy Consult Reason/Comments: ICU mgt Do you want consulting provider notified?: Yes Primary care physician: Braulio Parra Hospital Course: Discharge diagnoses: Chest pain: NSTEMI: Status post LHC and PCI 01/30 Pericardial effusion: Recent PCI LAD X2 Recent STEMI 1 week ago Acute on chronic systolic CHF with EF 20 to 25% Ischemic cardiomyopathy: Hypotension: Cardiogenic shock: Hyperkalemia: Acute blood loss anemia: Hospital course: 43-year-old female with past medical see significant for recent myocardial infarction with PCI last week, chronic systolic CHF with EF 20 to 25%, ischemic cardiomyopathy, history of right nephrectomy, history of ALDEN secondary to ATN started on hemodialysis 01/19/2024, diabetes mellitus, hypertension, hyperlipidemia who presented to ED with a complaint of shortness of breath, chest pain, weakness, nausea vomiting and lightheadedness. Patient was discharged home on 01/27/2024 after acute anterior STEMI status post LAD stenting X2. Patient was discharged home with LifeVest given echo showed EF of 20%. Patient reported that she was compliant with her medication and dialysis, had dialysis yesterday. Patient continued to feel weak, nauseous, vomited and lightheaded and along with shortness of breath. Patient also noticed some fluttering in the chest and stabbing chest pains. Reported intermittent chills no documented fever. Patient also reported small amount of bleeding after wiping with bowel movements. Patient chest x-ray showed cardiomegaly, no acute pulmonary process. Labs showed WBCs 15.1, hemoglobin 8.4, potassium 6.3, sodium 129, creatinine C3.68, troponin 16.3, proBNP 124,000. 01/31--patient was seen and examined today. Patient complains of generalized fatigue and weakness, chest pain is better, complain of shortness of breath.Yesterday, patient was taken to the laboratory chief and found to have 95% nnamdi nosis PDA, 50 to 80% stenosis of the RCA, 70% of the PLV, 80% OM1, 95% apical LAD stenosis and patent LAD stent. Patient then underwent PCI of the distal RCA overlapping JORDI, postdilated with balloon. Recommended treating small caliber OM1 and apical LAD medically due to small caliber. Echocardiogram showed EF 25 to 30%, moderate increased left ventricular wall thickness, moderate MR, moderate-severe TR, moderate pericardial effusion without tamponade. 02/01--patient was seen and examined today. Potassium was elevated 7.0, patient was treated with insulin per hyperkalemia protocol, patient later on underwent hemodialysis patient blood pressure dropped during hemodialysis today for which patient's dialysis was stopped after 1 hour. Patient's hemoglobin was 6.4, 1 unit of packed RBCs ordered. Patient was given midodrine by nephrology during hemodialysis for low blood pressure. Patient blood pressure persistently remained low. Patient later transferred to ICU. ICU consulted. Repeat potassium was 4.7, went up to 6.1 later on, was 5.0 on repeat. Per overnightcode team:02/02 I am seeing this patient in follow-up, she has had recent FL and PCI/stenting to LAD. She returned on 01/31/2024 and was diagnosed with a non-ST elevation FL, subsequently undergoing PCI/stenting of the right coronary artery with 2 additional stents. She was eventually transferred, to the intensive care unit, as she was hypotensive. She has received 2 units of packed red blood cells for anemia Repeat hemoglobin up to 10.9 g/dL. Echocardiogram done 01/31/2024 estimating a ejection fraction of 20 to 30%. Moderate to severe mitral and tricuspid regurgitation noted. She was also noted to have a moderate-sized pericardial effusion. Suspect cardiogenic shock. Throughout the night, patient became progressively more hypotensive and in shock state worsened, eventually becoming maxed on vasopressor support in the form of norepinephrine at 0.5 mcg/kg/min as well as vasopressin at physiological dose. I did speak to Dr. Al earlier in the night, patient did have a follow-up echocardiogram yesterday, and patient's moderate size pericardial effusion was reportedly stable. No tamponade features. Due to clinical instability and unresponsiveness, patient was intubated. Initial ventilator settings assist- control, respiratory rate 16, tidal volume 400, FiO2 100%, PEEP of 5. Most recent ABG consistent with metabolic acidosis. PaO2 137, pCO2 27, pH of 7.31. Patient has received multiple amps of sodium bicarbonate throughout the night. Patient also underwent hemodialysis, but this was terminated early as the patient was hemodynamically unstable. Dr. Reddy was called and updated on patient's clinical deterioration. He recommended stress dose of Solu-Cortef. Unfortunately, despite maximal efforts patient had asystole cardiac arrest at 0542, and a CODE BLUE was called overhead. Patient's and next of kin at bedside. ACLS protocol was followed. Sound physicians responded to bedside. I also called and updated Dr. Reddy, no further recommendations at this time. Resuscitative efforts continued for 15 minutes, no sustained ROSC was achieved. At this point, patient's has asked for us to stop resuscitation attempts. Patient at 0556. PHYSICAL EXAMINATION: Patient Dictation was produced using [employer] dictation software. please excuse any grammatical, word or spelling errors. Plan - Discharge Summary New Discharge Prescriptions: No Action Ticagrelor [Brilinta] 90 mg PO BID #60 tab Torsemide [Demadex] 40 mg PO DAILY #60 tab Metoprolol Tartrate [Lopressor] 25 mg PO BID #60 tab Sodium Bicarbonate Tab 650 mg PO BID #60 tab Loratadine [Claritin] 10 mg PO DAILY hydrALAZINE HCL [Apresoline] 25 mg PO TID #90 tab Isosorbide Dinitrate [Isordil] 20 mg PO TID #90 tab Nystatin 100,000 Unit/gm Powd [Mycostatin Powder] 1 applic TOPICAL QID each Pantoprazole [Protonix] 40 mg PO AC-BRKFST #30 tab Losartan [Cozaar] 25 mg PO DAILY Folic Acid 1 mg PO DAILY Atorvastatin [Lipitor] 40 mg PO DAILY Levothyroxine Sodium [Synthroid] 125 mcg PO DAILY Aspirin 81 mg PO DAILY Empagliflozin [Jardiance] 10 mg PO DAILY Doxylamine Succinate [Unisom] 25 mg PO HS PRN PRN Reason: Insomnia Discharge Medication List Aspirin 81 mg PO DAILY 01/27/24 [History] Atorvastatin [Lipitor] 40 mg PO DAILY 01/27/24 [History] Empagliflozin [Jardiance] 10 mg PO DAILY 01/27/24 [History] Folic Acid 1 mg PO DAILY 01/27/24 [History] Isosorbide Dinitrate [Isordil] 20 mg PO TID #90 tab 01/27/24 [Rx] Levothyroxine Sodium [Synthroid] 125 mcg PO DAILY 01/27/24 [History] Losartan [Cozaar] 25 mg PO DAILY 01/27/24 [History] Metoprolol Tartrate [Lopressor] 25 mg PO BID #60 tab 01/27/24 [Rx] Nystatin 100,000 Unit/gm Powd [Mycostatin Powder] 1 applic TOPICAL QID each 01/27/24 [Rx] Pantoprazole [Protonix] 40 mg PO AC-BRKFST #30 tab 01/27/24 [Rx] Sodium Bicarbonate Tab 650 mg PO BID #60 tab 01/27/24 [Rx] Ticagrelor [Brilinta] 90 mg PO BID #60 tab 01/27/24 [Rx] Torsemide [Demadex] 40 mg PO DAILY #60 tab 01/27/24 [Rx] hydrALAZINE HCL [Apresoline] 25 mg PO TID #90 tab 01/27/24 [Rx] Doxylamine Succinate [Unisom] 25 mg PO HS PRN 01/31/24 [History] Loratadine [Claritin] 10 mg PO DAILY 01/31/24 [History] Follow up Appointment(s)/Referral(s): Braulio Parra DO [Primary Care Provider] - 1-2 days
== END 2024-02-03 10:30 | disposition expired | DRG 321 ==
LOC: EC 09:36 → 3SCARD 13:29 → 2SICU 02-02 14:31
PROVIDERS: ADMIT Internal Medicine; ATTEND Internal Medicine
PROC: B2111ZZ Fluoroscopy of Multiple Coronary Arteries using Low Osmolar Contrast (ICD-10-PCS; 2024-01-31)
PROC: B2151ZZ Fluoroscopy of Left Heart using Low Osmolar Contrast (ICD-10-PCS; 2024-01-31)
PROC: 5A1D70Z Performance of Urinary Filtration, Intermittent, Less than 6 Hours Per Day (ICD-10-PCS; 2024-01-31)
PROC: 027137Z Dilation of Coronary Artery, Two Arteries with Four or More Drug-eluting Intraluminal Devices, Percutaneous Approach (ICD-10-PCS; principal; 2024-01-31 15:30)
PROC: B240ZZ3 Ultrasonography of Single Coronary Artery, Intravascular (ICD-10-PCS; 2024-01-31 15:30)
PROC: 4A023N7 Measurement of Cardiac Sampling and Pressure, Left Heart, Percutaneous Approach (ICD-10-PCS; 2024-01-31 15:30)
PROC: 30233N1 Transfusion of Nonautologous Red Blood Cells into Peripheral Vein, Percutaneous Approach (ICD-10-PCS; 2024-02-02)
PROC: 3E033XZ Introduction of Vasopressor into Peripheral Vein, Percutaneous Approach (ICD-10-PCS; 2024-02-03)
PROC: 03HY32Z Insertion of Monitoring Device into Upper Artery, Percutaneous Approach (ICD-10-PCS; 2024-02-03)
PROC: 4A133B1 Monitoring of Arterial Pressure, Peripheral, Percutaneous Approach (ICD-10-PCS; 2024-02-03)
PROC: 4A133J1 Monitoring of Arterial Pulse, Peripheral, Percutaneous Approach (ICD-10-PCS; 2024-02-03)
PROC: 0BH17EZ Insertion of Endotracheal Airway into Trachea, Via Natural or Artificial Opening (ICD-10-PCS; 2024-02-03)
PROC: 5A1935Z Respiratory Ventilation, Less than 24 Consecutive Hours (ICD-10-PCS; 2024-02-03)
DX: I21.4 Non-ST elevation (NSTEMI) myocardial infarction (principal); I50.23 Acute on chronic systolic (congestive) heart failure; J96.01 Acute respiratory failure with hypoxia; N18.6 End stage renal disease; I13.2 Hypertensive heart and chronic kidney disease with heart failure and with stage 5 chronic kidney disease, or end stage renal disease; E87.20 Acidosis, unspecified; I31.39 Other pericardial effusion (noninflammatory); D62 Acute posthemorrhagic anemia; E87.3 Alkalosis; I25.10 Atherosclerotic heart disease of native coronary artery without angina pectoris; D63.1 Anemia in chronic kidney disease; E11.22 Type 2 diabetes mellitus with diabetic chronic kidney disease; I21.09 ST elevation (STEMI) myocardial infarction involving other coronary artery of anterior wall; F41.0 Panic disorder [episodic paroxysmal anxiety]; I25.5 Ischemic cardiomyopathy; I08.1 Rheumatic disorders of both mitral and tricuspid valves; R57.0 Cardiogenic shock; E87.5 Hyperkalemia; Z66 Do not resuscitate; I46.9 Cardiac arrest, cause unspecified; F32.A Depression, unspecified; E03.9 Hypothyroidism, unspecified; E78.5 Hyperlipidemia, unspecified; F06.4 Anxiety disorder due to known physiological condition; Z79.02 Long term (current) use of antithrombotics/antiplatelets; Z79.82 Long term (current) use of aspirin; Z79.84 Long term (current) use of oral hypoglycemic drugs; Z79.890 Hormone replacement therapy; Z79.899 Other long term (current) drug therapy; Z90.5 Acquired absence of kidney; Z99.2 Dependence on renal dialysis
CPT/HCPCS: 36415; 36600; 71045; 71046; 80048; 80053; 82533; 82805; 83605; 83690; 83735; 83880; 84132; 84443; 84484; 85025; 85610; 85730; 86850; 86870; 86880; 86900; 86901; 86902; 86920; 87040; 90935; 92950; 92978; 93005; 93306; 93308; 93458; 94002; 94640; 94760; 96365; 96366; 96375; 99291